=== PATIENT | female | born 1945 | race Caucasian/White ===

== ENCOUNTER → 2016-03-19 | Outpatient (CLI) | payer OTHER ==
[~2016-03-19] MED LIST: AMLO5TAB4 PO; ASPCH81 PO; BIOT1CAP8 PO; CALCTAB7 PO; DOCU-94 PO; LEVOTHYROXINE PO; LISI-725 PO; LSN/2025 PO; OMEP40CA36 PO; POTA1TAB PO; PREN1TAB29 PO; RANI1TAB77 PO; TRAM-10 PO; TRIA0.1C20; VTMB12 PO
--- NOTE | 2016-03-19 10:27 | DIAGNOSTIC IMAGING REPORT ---
RIGHT SHOULDER MIN 2 VIEWS ROUTINE CLINICAL HISTORY: Arthritis. COMPARISON: None FINDINGS: Alignment of the right shoulder is anatomic. There is no fracture or suspicious lesion. There is severe joint space narrowing with osteophytosis of the glenohumeral joint as well as moderate arthritis of the acromioclavicular joint. A few calcific densities are noted adjacent to the right glenohumeral joint that measure up to 1.4 cm. IMPRESSION: 1. No acute fracture or dislocation of the right shoulder. 2. Severe arthritis of the right glenohumeral and acromioclavicular joints. 3. Several calcific densities measuring up to 1.4 cm which project over the joint space. These could reflect joint bodies. Electronically signed by: Tree Soto M.D. 03/19/2016 10:25 AM Dictated Date/Time: 03/19/2016 10:24 AM
--- NOTE | 2016-03-19 10:28 | DIAGNOSTIC IMAGING REPORT ---
RIGHT HIP UNILATERAL 2 VIEWS CLINICAL HISTORY: Arthritis. Right hip pain. COMPARISON: None FINDINGS: Alignment of the right hip is anatomic. There is no fracture or suspicious lesion. Joint space is preserved. There is mild osteophytosis. Irregularity of the greater trochanter is due to muscular insertion. There is no evidence for avascular necrosis. There is mild arthritis of the right sacroiliac joint. IMPRESSION: 1. Mild arthritis of the right sacroiliac joint. 2. Minimal arthritis of the right hip. 3. No fracture. Electronically signed by: Tree Soto M.D. 03/19/2016 10:27 AM Dictated Date/Time: 03/19/2016 10:26 AM
--- NOTE | 2016-03-19 10:36 | DIAGNOSTIC IMAGING REPORT ---
L-SPINE MIN 4 VIEWS ROUTINE CLINICAL HISTORY: Sciatica. Arthritis. COMPARISON: None FINDINGS: There is moderate loss of height of L1. This is likely chronic. No acute fracture is identified. There is moderate to marked disc space narrowing with osteophytosis and vacuum disc phenomenon at the L2-L3, L3-L4, L4-L5 and L5-S1 levels. No suspicious lesion is identified by radiography. Sacroiliac joints are intact with mild arthritis. IMPRESSION: 1. Moderate L1 compression deformity. Although age indeterminate, this is probably old. 2. Severe multilevel degenerative disc disease and moderate multilevel facet arthrosis of the lumbar spine. Electronically signed by: Tree Soto M.D. 03/19/2016 10:35 AM Dictated Date/Time: 03/19/2016 10:33 AM
== END | disposition home or self-care (01) ==
LOC: C.RAD1850 09:48
PROVIDERS: ATTEND Internal Medicine Pulmonary Disease
DX: E03.9 Hypothyroidism, unspecified (principal); E11.9 Type 2 diabetes mellitus without complications; I10 Essential (primary) hypertension; M54.30 Sciatica, unspecified side; M51.86 Other intervertebral disc disorders, lumbar region; M19.011 Primary osteoarthritis, right shoulder; M85.811 Other specified disorders of bone density and structure, right shoulder

== ENCOUNTER → 2016-09-11 | Outpatient (CLI) | payer OTHER ==
[2016-09-11 09:38] LABS: BASO % 0.5 %; BASO ABS # 0.03 K/uL (0-0.2); COMPLETE YES; EOS % 3.6 %; HEMATOCRIT 42.6 % (37-47); IG% 0.5 %; LYMPH % 33.1 %; MEAN CELL VOLUME 88.9 fL (80-100); MEAN CORPUSCULAR HEMOGLOBIN 31.1 pg (25-34); MEAN PLATELET VOLUME 11.3 fL (7.4-10.4); MONO % 10.7 %; NEUT % 51.6 %; PLATELET COUNT 181 K/uL (130-400); RED BLOOD COUNT 4.79 M/uL (4.2-5.4); WHITE BLOOD COUNT 6.64 K/uL (4.8-10.8)
[2016-09-11 09:58] LABS: ESTIMATED AVERAGE GLUCOSE 163 mg/dl; HA1C FLAG Normal (Normal)
[2016-09-11 10:09] LABS: ALKALINE PHOSPHATASE 80 U/L (45-117); ALT/SGPT 32 U/L (12-78); AST/SGOT 20 U/L (15-37); BLOOD UREA NITROGEN 21 mg/dl (7-18); BUN/CREATININE RATIO 22.3 (10-20); CALCIUM 9.4 mg/dl (8.5-10.1); CARBON DIOXIDE 31 mmol/L (21-32); CHLORIDE 104 mmol/L (98-107); CHOLESTEROL 182 mg/dl (0-200); CHOLESTEROL/HDL RATIO 3.7; CREATININE 0.93 mg/dl (0.60-1.20); GLUCOSE 147 mg/dl (70-99); HDL CHOLESTEROL 49 mg/dl; POTASSIUM 4.1 mmol/L (3.5-5.1); SODIUM 141 mmol/L (136-145)
[2016-09-11 10:20] LABS: LDL CHOLESTEROL CALCULATED 109 mg/dl; TRIGLYCERIDES 119 mg/dl (0-150); VERY LOW DENSITY LIPOPROT CALC 24 mg/dl
== END | disposition home or self-care (01) ==
LOC: C.LAB1850 08:17
PROVIDERS: ATTEND Internal Medicine Pulmonary Disease
DX: I10 Essential (primary) hypertension (principal); E03.9 Hypothyroidism, unspecified; M19.90 Unspecified osteoarthritis, unspecified site; M54.30 Sciatica, unspecified side; E11.65 Type 2 diabetes mellitus with hyperglycemia

== ENCOUNTER → 2016-09-17 | Outpatient (CLI) | payer OTHER ==
--- NOTE | 2016-09-17 10:38 | DIAGNOSTIC IMAGING REPORT ---
LEFT SHOULDER MIN 2 VIEWS ROUTINE HISTORY: 71 years-old Female I10 [id number] [id number] Diabetes [id number] COMPARISON: Chest radiographs 05/03/2014 TECHNIQUE: 3 views of the left shoulder FINDINGS: There is prominent spurring about the greater tuberosity and inferior aspect of the humeral head neck junction. Bones are mildly demineralized. Moderate degenerative changes are seen within the AC joint. There is no definite intra-articular loose body identified. No acute fracture or dislocation is identified. Imaged lung greer appear to be clear. Soft tissues are unremarkable. IMPRESSION: 1. No acute fracture or dislocation. 2. Moderate acromioclavicular and mild to moderate glenohumeral degenerative changes as above. The above report was generated using voice recognition software. It may contain grammatical, syntax or spelling errors. Electronically signed by: Manuelito Emery M.D. 09/17/2016 10:36 AM Dictated Date/Time: 09/17/2016 10:34 AM
== END | disposition home or self-care (01) ==
LOC: C.RAD1850 10:14
PROVIDERS: ATTEND Internal Medicine Pulmonary Disease
DX: E03.9 Hypothyroidism, unspecified (principal); E11.9 Type 2 diabetes mellitus without complications; I10 Essential (primary) hypertension; M19.90 Unspecified osteoarthritis, unspecified site

== ENCOUNTER → 2016-12-18 | Outpatient (CLI) | payer OTHER ==
--- NOTE | 2016-12-18 15:16 | MAMMOGRAPHY REPORT ---
BILATERAL DIGITAL SCREENING MAMMOGRAM WITH CAD: 12/18/2016 CLINICAL HISTORY: Routine screening examination. TECHNIQUE: Bilateral CC and MLO views were obtained. Current study was also evaluated with a Compute r Aided Detection (CAD) system. COMPARISON: Comparison is made to exams dated: 11/07/2015 mammogram, 11/02/2014 mammogram, 10/27/2013 denise mogram, 10/20/2012 mammogram, 10/15/2011 mammogram, and 10/09/2010 mammogram - [facility]. BREAST COMPOSITION: The tissue of both breasts is almost entirely fatty. FINDINGS: There is a stable intramammary lymph node in the right upper outer quadrant. Benign coarse and rodlike calcifications bilaterally. No new suspicious mass, architectural distortion or cluster of microcalcifications is seen. IMPRESSION: ACR BI-RADS CATEGORY 2: BENIGN There is no mammographic evidence of malignancy. A 1 year screening mammogram is recommended. The pa tient will receive written notification of the results. Approximately 10% of breast cancers are not detected with mammography. A negative mammographic report should not delay biopsy if a clinically suggestive mass is present. Yadira Lawton M.D. ay/:12/18/2016 13:37:26 Petroleum Engineering Professor: Cinthia STROUD(Mayra)(Felicia), [facility] letter sent: Normal 1/2 BI-RADS Code: ACR BI-RADS Category 2: Benign
== END | disposition home or self-care (01) ==
LOC: C.MAMM 12:45
PROVIDERS: ATTEND Internal Medicine Pulmonary Disease
DX: Z12.31 Encounter for screening mammogram for malignant neoplasm of breast (principal)

== ENCOUNTER → 2017-03-13 | Outpatient (CLI) | payer OTHER ==
[2017-03-13 09:49] LABS: HEMOGLOBIN A1C 7.5 % (4.5-5.6)
== END | disposition home or self-care (01) ==
LOC: C.LAB1850 08:49
PROVIDERS: ATTEND Internal Medicine Pulmonary Disease
DX: I10 Essential (primary) hypertension (principal); E03.9 Hypothyroidism, unspecified; M19.90 Unspecified osteoarthritis, unspecified site; E11.9 Type 2 diabetes mellitus without complications

== ENCOUNTER → 2017-10-01 | Outpatient (CLI) | payer OTHER ==
[~2017-10-01] MED LIST changes: +LISI20TA10 PO; -LSN/2025 PO
--- NOTE | 2017-10-01 14:27 | DIAGNOSTIC IMAGING REPORT ---
MRI OF THE LUMBAR SPINE WITHOUT IV CONTRAST CLINICAL HISTORY: Lumbar spinal stenosis. COMPARISON STUDY: Radiographs of lumbar spine dated 09/24/2017. TECHNIQUE: MRI of the lumbar spine is performed utilizing various T1 and T2-weighted sequences in the axial and sagittal planes. IV contrast was not administered for this examination. FINDINGS: Lumbar spine: There is a mild to moderate chronic superior endplate compression deformity of L1. Vertebral body height is otherwise maintained throughout the lumbar spine. Alignment is preserved. There is straightening of the lumbar lordosis. Anterior osteophytes are seen throughout. The transverse and spinous processes are intact as visualized. There is no evidence of spondylolysis. No destructive bony lesion is seen. Chronic degenerative endplate change is seen at all lumbar levels. Mild degenerative endplate edema is noted at L1-L2, L2-L3, L4-L5, and L5-S1. Intervertebral discs: Degenerative disc desiccation with moderate to severe loss of height is seen at all lumbar levels. Spinal cord: The visualized spinal cord is normal in morphology and signal intensity. The conus medullaris terminates at the L1-L2 interspace. The nerve roots of the cauda equina are normal in morphology. T11-T12: There is a small posterior disc bulge at T11-T12. This is only seen on the sagittal series. No high-grade central canal stenosis is identified. T12-L1: Facet arthropathy is of no consequence. The central canal and neural foramina are patent. L1-L2: There is a large posterior central disc protrusion. There is no significant acquired compromise of the central canal at this level. The neural foramina are patent. There is bilateral subarticular stenosis with possible impingement on the exiting L1 nerve roots. L2-L3: There is broad-based posterior disc bulge. There is no high-grade central canal stenosis. The minimum AP canal diameter measures up to 10 mm. The neural foramina are patent. There is bilateral subarticular stenosis. This may impinge on the exiting bilateral L3 nerve roots. L3-L4: There is broad-based posterior disc bulge with annular fissure. In conjunction with hypertrophy of the ligamentum flavum there is mild to moderate central canal stenosis at the level. The minimum AP canal diameter measures 7.5 mm. There is bilateral subarticular stenosis, impingement on the exiting right L3 and the transiting bilateral L4 nerve roots. L4-L5: There is broad-based posterior disc bulge. In conjunction with hypertrophy of the ligamentum flavum there is moderate central canal stenosis with a minimum AP diameter of 5 mm. There is severe bilateral subarticular stenosis, with impingement on the exiting bilateral L4 and the transiting bilateral L5 nerve roots. Facet arthropathy causes minimal bilateral neural foraminal stenosis. L5-S1: There is a broad-based posterior disc bulge eccentric to the left. This causes left-sided subarticular stenosis, and impinges on the exiting left L5 as well as the transiting bilateral S1 nerve roots. Facet arthropathy causes at least moderate bilateral neural foraminal stenosis. Sacrum: The visualized sacrum is normal in morphology and signal intensity. 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 Soft tissues: There is mild fatty atrophy of the paraspinous musculature. Right renal cysts are incidentally noted. The visualized retroperitoneal structures are otherwise grossly unremarkable but incompletely evaluated. IMPRESSION: 1. Moderate multilevel lumbosacral spondylosis as above with multilevel acquired compromise of the central canal. This is greatest at L4-L5. See discussion for detailed level by level analysis. 2. Advanced degenerative disc disease with multilevel degenerative endplate change and endplate edema. See discussion. 3. There is a chronic superior endplate compression deformity of L1. 4. Additional findings as above. Dictated: 10/01/2017 1:37 PM Transcribed: 10/01/2017 2:27 PM [facility] Electronically signed by: Charles Workman M.D. 10/01/2017 2:49 PM Dictated Date/Time: 10/01/2017 1:37 PM
== END | disposition home or self-care (01) ==
LOC: C.MRI 12:30
PROVIDERS: ATTEND Orthopaedic Surgery Orthopaedic Surgery of the Spine
DX: M48.061 Spinal stenosis, lumbar region without neurogenic claudication (principal); M51.36 Other intervertebral disc degeneration, lumbar region; M48.56XA Collapsed vertebra, not elsewhere classified, lumbar region, initial encounter for fracture

== ENCOUNTER 2022-07-06 08:21 | Inpatient (IN) ==
[2022-07-06] MEDS ORDERED: PANTOPRAZOLE BOLUS/DRIP 1 EACH IV STA (09:00)
[2022-07-06] MEDS ORDERED: SODIUM CHLORIDE 0.9% 500 ML IV SCH (09:00)
[2022-07-06] MEDS ORDERED: PANTOprazole 80 MG in DEXTROSE 5% 100 ML IV ONE (09:00)
[2022-07-06] MEDS ORDERED: SODIUM CHLORIDE 0.9% 250 ML IV PRN (09:08)
[2022-07-06 09:27] LABS: Albumin Globulin Ratio 1.3 (0.9-2); Albumin Level 4.5 gm/dl (3.4-5.0); BUN Creatinine Ratio 27.3 (10-20); Bilirubin,Total 0.7 mg/dl (0.2-1.0); Calcium 9.9 mg/dl (8.6-10.3); Creatinine Clr Calc Pharmacy 37.4 ml/min; Est GFR (Non-African American) 39.7 ml/min; Globulin 3.4 gm/dl (2.5-4.0); Potassium 4.3 mmol/L (3.5-5.1); Total Protein 7.9 gm/dl (6.0-8.3)
--- NOTE | 2022-07-06 09:28 | CT Scan Report ---
CT OF THE HEAD WITHOUT CONTRAST CLINICAL HISTORY: Syncope with head injury. COMPARISON STUDY: No previous studies for comparison. CT DOSE: 625.80 mGy.cm TECHNIQUE: Helical axial images of the head were obtained without IV contrast. Automated exposure con trol was utilized for the study. A dose lowering technique was utilized adhering to the principles o f ALARA. FINDINGS: No acute intracranial hemorrhage, midline shift or mass effect is present. White matter hyp odensities are suggestive of small vessel disease. The ventricular system is unremarkable. The basal cisterns are patent. No extra-axial collections are present. There are no findings to suggest acute d ural sinus thrombosis or acute territorial infarct. A left frontal scalp contusion is present. There is no acute calvarial fracture. IMPRESSION: 1. No acute intracranial findings. 2. Left frontal scalp contusion. No calvarial fracture. ACT 112: Negative or not required by law. Electronically signed by: Tree Soto M.D. 07/06/2022 9:27 AM
--- NOTE | 2022-07-06 09:42 | Emergency Department Note ---
Impression & Plan Bilateral pulmonary embolism, Syncope, CHI (closed head injury), Thrombocytopenia, Heme positive stool ED Provider Note CHIEF COMPLAINT: Syncope, diarrhea HISTORY OF PRESENT ILLNESS: This 77-year-old female patient with past medical history of type 2 diabetes, peripheral neuropathy, hypothyroidism, hypertension, GERD, PAD, chronic kidney disease presents to the emergency department after a near syncopal episode today and an episode of dark diarrhea. Patient states she was incontinent of the diarrhea which is unusual for her. Patient's reiterates that about a week ago she had a syncopal episode in the bathroom. The patient stood up felt dizzy and tried to walk to her bed. She missed the bed and thinks she hit her head/face off of the jewelry stand. found the patient with positive LOC "face down" after he heard the thud. Patient states this has not recurred since that episode. REVIEW OF SYSTEMS: A review of systems was performed with positives and pertinen t negatives listed in the history of present illness. 10 systems were reviewed and are otherwise negative. ALLERGIES: see below MEDICATIONS: see below PMH: see below SOCIAL HISTORY: see below DDx: Benign positional vertigo, dehydration, hypovolemia, anemia, tumor, infection, hypoglycemia, electrolyte abnormalities, cardiac sources, intracerebral event, toxicologic, neurologic, as well as other pathologies. PHYSICAL EXAM: Vital signs reviewed. Noted to be hypertensive. General: Well-appearing 77 yo female, in no significant distress. HEENT: No scleral icterus, PERRLA, neck supple. Hematoma noted to the forehead and bridge of the nose/right maxillary region Cardiovascular: Regular rate and rhythm, no extra sounds. Pulmonary: Clear to auscultation bilaterally, normal work of breathing. Abdomen: Soft, nontender, nondistended, positive bowel sounds. Musculoskeletal: Atraumatic, no peripheral edema. Rectal: Faint guaiac + light brown stool. Normal rectal mucosa. Neurologic: Patient awake alert and oriented x 3, speech is clear. Cranial nerves II through XII are grossly intact. Skin: Warm, dry, no rash EMERGENCY DEPARTMENT COURSE/MDM: - IV access obtained and lab work was drawn. Previous med records reviewed. - placed on scoreboard operator. EKG reveals ST with PVC, new RBBB. - CXR clear. Head CT negative for ICH, forehead hematoma noted. - HS trop elevated and pt tachycardic w syncope, CT chest ordered. -CTA chest + submassive bilateral PE. Hgb 14 with plt count 41. HS trop 212, likely demand mediated. - D/w Dr. Pinzon of ICU, rec c/w critcal care and interventional rads at tertiary center. - Dr. Larson of critical care feels pt stable and does not meet criteria for catheter guided TPA or thrombectomy at this time. - Will keep pt at [facility] as no procedure is indicated currently. Dr. Pinzon informed and asked for PCU admit. - Dr. Ibarra of hospital medicine aware and will evaluate for admission. MONITORING: An order for cardiac monitoring was placed and the patient is noted to be in a sinus tachy at 105 beats per minute. RADIOLOGY: CT chest to my review reveals large bilateral PE, otherwise defer to rads. Head CT to my review is negative for acute intracranial hemorrhage. Defer to rads. CXR to my review is negative for acute process. EKG: To my interpretation reveals a sinus tachycardia with occasional PVC at 110 bpm. Low voltage QRS, right bundle branch block, previous inferior infarct. T wave abnormality in the lateral leads. When compared to previous dated February 14, 2022, PVCs are now present, PACs have resolved. RBBB is now present. DISPOSITION: Admit I have personally spent 60 minutes of critical care time in the direct management of this patient. This was a life/limb threatening event. This 60 minutes is in excess of all separately billable procedures. Past Med/Surg History Medical History Arthritis of both feet Asthma Controlled Degenerative disc disease Diabetes mellitus, type 2 A1C 7.1% 10/26/21 Eczema GERD (gastroesophageal reflux disease) Hiatal hernia History of COVID-19 Mid 11/2021 (home test), cough and nasal congestion > resolved Hypertension Hypothyroidism Osteoarthritis Peripheral vascular disease Stage 3a chronic kidney disease (CKD) Urethral stenosis "Small urethra" per pt, requiring "small Kapadia catheter" Viral eye infection Right eye being treated by Dr. Washington, taking valcyclovir and prednisone eye drops (per pt, Dr. Washington told her no issue with upcoming orthopedic surgery from their perspective) Surgical History Acquired toe deformity amputation right second toe Hammertoes of both feet corrected History of blepharoplasty upper lid w/ excessive skin History of bunionectomy RT History of cataract surgery RT History of colonoscopy History of cornea transplant RT SIDE History of dilation and curettage History of endometrial biopsy without cervical dilation History of esophagogastroduodenoscopy (EGD) History of tooth extraction History of total right knee replacement History of varicose vein ligation LEFT Hx of foot surgery Right 2nd toe amputation (11/10/20): MAC at [facility] Status post reverse total replacement of right shoulder Right reverse TSA (06/10/20): LMA#4 + PNB at [facility]. No issues noted per post-op anesthesia progress note. Family History Family/Other Diabetes Breast cancer Hypertension Coronary arteriosclerosis Grandmother Colon cancer Father Family history of diabetes mellitus Other No family history of adverse response to anesthesia Social History Smoking Status: Former smoker Second Hand Exposure: No; Do You Dip or Chew Tobacco: No; Hx Alcohol Use: No Hx Substance Use: No Preferred Language: [place] Communication Ability: Effective Visual Impairment: Limited Hearing Ability: Normal Credit Reporter Required: No Beliefs That Will Affect Care: None marital status: Current Living Situation: Spouse current occupational status: employed 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 How many Children do You have Comment: able to assist with care as needed Feels Safe at Home: Yes Safety Concerns: Feels Safe At This Time during the past year weight has: remained stable Assistive Devices: Denture - Upper and Glasses Allergies Allergies Allergy/AdvReac Type Severity Reaction Status Date / Time oxycodone [From OxyContin] Allergy Intermediate Hallucinati Verified 03/16/22 07:17 ons adhesive tape AdvReac Mild Skin Verified 03/16/22 07:17 reaction Home Meds Home Medications Medication Instructions Recorded Confirmed aspirin 81 mg tablet 81 mg PO QAM 12/09/18 07/06/22 lactobacillus combination no.4 3 3,000 mmu cells PO QAM 05/12/20 07/06/22 billion cell capsule (Probiotic) potassium gluconate 595 mg (99 mg) 595 mg PO QAM 05/12/20 07/06/22 tablet magnesium 500 mg tablet 250 mg PO QAM 04/05/21 07/06/22 Beet Root 1 tab PO QAM 02/12/22 07/06/22 biotin 10,000 mcg chewable tablet 10,000 mcg PO QAM 02/12/22 07/06/22 (Hair, Skin and Nails (biotin)) naproxen sodium 220 mg capsule 220 mg PO Q8H PRN Pain 02/12/22 07/06/22 (Aleve) prednisolone acetate 1 % eye 1 drp OPR QAM 02/12/22 07/06/22 drops,suspension valacyclovir 1 gram tablet 1,000 mg PO QAM 02/12/22 07/06/22 amlodipine 5 mg tablet 5 mg PO DAILY 07/06/22 07/06/22 glipizide 2.5 mg tablet, extended 2.5 mg PO DAILY 07/06/22 07/06/22 release 24 hr levothyroxine 100 mcg tablet 100 mcg PO DAILY 07/06/22 07/06/22 losartan 100 1 tab PO DAILY 07/06/22 07/06/22 mg-hydrochlorothiazide 25 mg tablet omeprazole 40 mg capsule,delayed 40 mg PO DAILY 07/06/22 07/06/22 release Previous Rx's Medication Instructions Recorded albuterol sulfate 90 mcg/actuation 2 puff inhalation Q6H PRN 05/17/21 aerosol inhaler (Proventil HFA) shortness of breath or wheezing #8.5 grams nystatin 100,000 unit/gram topical 1 applic topical BID #60 grams 09/11/21 powder metformin 500 mg tablet,extended 1,000 mg PO BID #360 tabs 03/14/22 release 24 hr Results & Data (ED) Vital Signs Vital Signs - 24 hr 07/06/22 08:27 07/06/22 08:40 07/06/22 08:48 Temperature 36.7 C Temperature Source Temporal Artery Scan Pulse Rate - Lying 101 H Pulse Rate - Sitting 106 H Pulse Rate - Standing 109 H Pulse Rate 112 H 105 H Pulse Rate [Apical] Pulse Rate from SpO2 Sensor Pulse Rhythm [Apical] Respiratory Rate 18 Respiratory Effort / Characteristics Respiratory Depth Normal Respiratory Pattern Blood Pressure - Lying 141/88 H Blood Pressure - Sitting 119/82 Blood Pressure- Standing 123/93 Blood Pressure 139/90 Blood Pressure [Left Arm] Blood Pressure Mean 106 Blood Pressure Mean [Left Arm] Blood Pressure Position [Left Arm] Pulse Oximetry 92 Oxygen Delivery Method Room Air Sepsis Recent Fever Within 48 Hours No Sepsis New/Unexplained Change in Mental Status No Sepsis Action Taken by Nursing No Action Required 07/06/22 09:04 07/06/22 09:00 07/06/22 09:30 Temperature Temperature Source Pulse Rate - Lying Pulse Rate - Sitting Pulse Rate - Standing Pulse Rate 103 H 105 H Pulse Rate [Apical] 98 H Pulse Rate from SpO2 Sensor Pulse Rhythm [Apical] Regular Respiratory Rate 16 24 23 Respiratory Effort / Characteristics Non-Labored Spontaneous Respiratory Depth Normal Respiratory Pattern Regular Blood Pressure - Lying Blood Pressure - Sitting Blood Pressure- Standing Blood Pressure 116/91 124/87 Blood Pressure [Left Arm] 116/91 Blood Pressure Mean 99 99 Blood Pressure Mean [Left Arm] 99 Blood Pressure Position [Left Arm] Semi-fowlers Pulse Oximetry 96 95 93 Oxygen Delivery Method Room Air Sepsis Recent Fever Within 48 Hours Sepsis New/Unexplained Change in Mental Status Sepsis Action Taken by Nursing 07/06/22 10:00 07/06/22 10:30 07/06/22 10:30 Temperature Temperature Source Pulse Rate - Lying Pulse Rate - Sitting Pulse Rate - Standing Pulse Rate 92 H 88 Pulse Rate [Apical] Pulse Rate from SpO2 Sensor 92 H Pulse Rhythm [Apical] Respiratory Rate 22 20 Respiratory Effort / Characteristics Respiratory Depth Respiratory Pattern Blood Pressure - Lying Blood Pressure - Sitting Blood Pressure- Standing Blood Pressure 133/94 138/100 Blood Pressure [Left Arm] Blood Pressure Mean 107 112 Blood Pressure Mean [Left Arm] Blood Pressure Position [Left Arm] Pulse Oximetry 93 94 Oxygen Delivery Method Sepsis Recent Fever Within 48 Hours Sepsis New/Unexplained Change in Mental Status Sepsis Action Taken by Nursing 07/06/22 11:00 07/06/22 11:00 07/06/22 11:30 Temperature Temperature Source Pulse Rate - Lying Pulse Rate - Sitting Pulse Rate - Standing Pulse Rate 96 H 93 H Pulse Rate [Apical] Pulse Rate from SpO2 Sensor 92 H Pulse Rhythm [Apical] Respiratory Rate 23 21 Respiratory Effort / Characteristics Respiratory Depth Respiratory Pattern Blood Pressure - Lying Blood Pressure - Sitting Blood Pressure- Standing Blood Pressure 142/106 H Blood Pressure [Left Arm] Blood Pressure Mean 118 Blood Pressure Mean [Left Arm] Blood Pressure Position [Left Arm] Pulse Oximetry 94 Oxygen Delivery Method Room Air Sepsis Recent Fever Within 48 Hours Sepsis New/Unexplained Change in Mental Status Sepsis Action Taken by Nursing 07/06/22 11:45 07/06/22 11:51 07/06/22 11:51 Temperature Temperature Source Pulse Rate - Lying Pulse Rate - Sitting Pulse Rate - Standing Pulse Rate 100 H 92 H Pulse Rate [Apical] Pulse Rate from SpO2 Sensor Pulse Rhythm [Apical] Respiratory Rate 25 H 21 Respiratory Effort / Characteristics Respiratory Depth Respiratory Pattern Blood Pressure - Lying Blood Pressure - Sitting Blood Pressure- Standing Blood Pressure 175/111 H Blood Pressure [Left Arm] Blood Pressure Mean 132 Blood Pressure Mean [Left Arm] Blood Pressure Position [Left Arm] Pulse Oximetry 94 Oxygen Delivery Method Room Air Sepsis Recent Fever Within 48 Hours Sepsis New/Unexplained Change in Mental Status Sepsis Action Taken by Nursing 07/06/22 12:00 07/06/22 12:00 07/06/22 12:15 Temperature Temperature Source Pulse Rate - Lying Pulse Rate - Sitting Pulse Rate - Standing Pulse Rate 91 H Pulse Rate [Apical] Pulse Rate from SpO2 Sensor 89 Pulse Rhythm [Apical] Respiratory Rate 15 Respiratory Effort / Characteristics Respiratory Depth Respiratory Pattern Blood Pressure - Lying Blood Pressure - Sitting Blood Pressure- Standing Blood Pressure 150/109 H 156/105 H Blood Pressure [Left Arm] Blood Pressure Mean 122 122 Blood Pressure Mean [Left Arm] Blood Pressure Position [Left Arm] Pulse Oximetry 94 Oxygen Delivery Method Room Air Sepsis Recent Fever Within 48 Hours Sepsis New/Unexplained Change in Mental Status Sepsis Action Taken by Nursing 07/06/22 12:15 07/06/22 12:30 07/06/22 12:30 Temperature Temperature Source Pulse Rate - Lying Pulse Rate - Sitting Pulse Rate - Standing Pulse Rate 94 H 99 H Pulse Rate [Apical] Pulse Rate from SpO2 Sensor 95 H 99 H Pulse Rhythm [Apical] Respiratory Rate 22 20 Respiratory Effort / Characteristics Respiratory Depth Respiratory Pattern Blood Pressure - Lying Blood Pressure - Sitting Blood Pressure- Standing Blood Pressure 193/133 H Blood Pressure [Left Arm] Blood Pressure Mean 153 Blood Pressure Mean [Left Arm] Blood Pressure Position [Left Arm] Pulse Oximetry 94 94 Oxygen Delivery Method Room Air Room Air Sepsis Recent Fever Within 48 Hours Sepsis New/Unexplained Change in Mental Status Sepsis Action Taken by Nursing 07/06/22 12:45 07/06/22 12:45 Temperature Temperature Source Pulse Rate - Lying Pulse Rate - Sitting Pulse Rate - Standing Pulse Rate 99 H Pulse Rate [Apical] Pulse Rate from SpO2 Sensor 100 H Pulse Rhythm [Apical] Respiratory Rate 21 Respiratory Effort / Characteristics Respiratory Depth Respiratory Pattern Blood Pressure - Lying Blood Pressure - Sitting Blood Pressure- Standing Blood Pressure 152/113 H Blood Pressure [Left Arm] Blood Pressure Mean 126 Blood Pressure Mean [Left Arm] Blood Pressure Position [Left Arm] Pulse Oximetry 94 Oxygen Delivery Method Room Air Sepsis Recent Fever Within 48 Hours Sepsis New/Unexplained Change in Mental Status Sepsis Action Taken by [facility]way Medications Current Medication List: was personally reviewed by me Laboratory Data Attestation: I reviewed the patient's lab results. 07/06/22 08:40 07/06/22 08:40 Lab Results 07/06/22 07/06/22 07/06/22 Range/Units 08:40 08:40 08:40 WBC 9.66 (4.8-10.8) K/ul RBC 4.54 (4.20-5.40) M/uL Hgb 14.7 (12.0-16.0) g/dl Hct 43.3 (37.0-47.0) % MCV 95.4 (80.0-100.0) fL MCH 32.4 (25.0-34.0) pg MCHC 33.9 (32.0-36.0) g/dL RDW Std Deviation 47.8 H (36.4-46.3) fL RDW Coeff of Rico 13.7 (11.5-14.5) % Plt Count 41 L (130-400) K/uL MPV 13.0 H (9.4-12.4) fL Immature Gran % (Auto) 0.4 % Neut % (Auto) 66.5 % Lymph % (Auto) 23.6 % Dade % (Auto) 7.7 % Eos % (Auto) 1.3 % Baso % (Auto) 0.5 % Neut # (Auto) 6.42 (1.40-6.50) K/uL Lymph # (Auto) 2.28 (1.2-3.4) K/uL Dade # (Auto) 0.74 H (0.11-0.59) K/uL Eos # (Auto) 0.13 (0-0.50) K/uL Baso # (Auto) 0.05 (0-0.2) K/uL Immature Gran # (Auto) 0.04 (0.01-0.20) K/uL PT 12.5 H (9.0-12.0) Seconds INR 1.2 H (0.9-1.1) APTT 28.1 (21.0-31.0) Seconds PTT Ratio 1.0 Sodium 137 (136-145) mmol/L Potassium 4.3 (3.5-5.1) mmol/L Chloride 103 (98-107) mmol/L Carbon Dioxide 23 (21-32) mmol/L Anion Gap 11 (3-11) BUN 35 H (6-23) mg/dl Creatinine 1.28 H (0.6-1.2) mg/dl Est Cr Clr Drug Dosing 37.4 ml/min Est GFR ( Amer) 46.0 ml/min Est GFR (Non-Af Amer) 39.7 ml/min BUN/Creatinine Ratio 27.3 H (10-20) Glucose 161 H (70-99(Fasting)) mg/dl Calcium 9.9 (8.6-10.3) mg/dl Total Bilirubin 0.7 (0.2-1.0) mg/dl AST 31 (13-39) U/L ALT 25 (7-52) U/L Alkaline Phosphatase 72 (34-104) U/L Troponin I High Sens 212.4 H* (0-14) pg/ml Total Protein 7.9 (6.0-8.3) gm/dl Albumin 4.5 (3.4-5.0) gm/dl Globulin 3.4 (2.5-4.0) gm/dl Albumin/Globulin Ratio 1.3 (0.9-2) SARS-CoV-2, RNA, NAAT (NEGATIVE) Blood Type Antibody Screen Crossmatch 07/06/22 07/06/22 Range/Units 09:22 11:11 WBC (4.8-10.8) K/ul RBC (4.20-5.40) M/uL Hgb (12.0-16.0) g/dl Hct (37.0-47.0) % MCV (80.0-100.0) fL MCH (25.0-34.0) pg MCHC (32.0-36.0) g/dL RDW Std Deviation (36.4-46.3) fL RDW Coeff of Rico (11.5-14.5) % Plt Count (130-400) K/uL MPV (9.4-12.4) fL Immature Gran % (Auto) % Neut % (Auto) % Lymph % (Auto) % Dade % (Auto) % Eos % (Auto) % Baso % (Auto) % Neut # (Auto) (1.40-6.50) K/uL Lymph # (Auto) (1.2-3.4) K/uL Dade # (Auto) (0.11-0.59) K/uL Eos # (Auto) (0-0.50) K/uL Baso # (Auto) (0-0.2) K/uL Immature Gran # (Auto) (0.01-0.20) K/uL PT (9.0-12.0) Seconds INR (0.9-1.1) APTT (21.0-31.0) Seconds PTT Ratio Sodium (136-145) mmol/L Potassium (3.5-5.1) mmol/L Chloride (98-107) mmol/L Carbon Dioxide (21-32) mmol/L Anion Gap (3-11) BUN (6-23) mg/dl Creatinine (0.6-1.2) mg/dl Est Cr Clr Drug Dosing ml/min Est GFR ( Amer) ml/min Est GFR (Non-Af Amer) ml/min BUN/Creatinine Ratio (10-20) Glucose (70-99(Fasting)) mg/dl Calcium (8.6-10.3) mg/dl Total Bilirubin (0.2-1.0) mg/dl AST (13-39) U/L ALT (7-52) U/L Alkaline Phosphatase (34-104) U/L Troponin I High Sens (0-14) pg/ml Total Protein (6.0-8.3) gm/dl Albumin (3.4-5.0) gm/dl Globulin (2.5-4.0) gm/dl Albumin/Globulin Ratio (0.9-2) SARS-CoV-2, RNA, NAAT NEGATIVE (NEGATIVE) Blood Type B Positive Antibody Screen NEGATIVE Crossmatch See Detail Administered Medications Heparin Sodium/Dextrose (Heparin Sodium/Dextrose) 25,000 units in 500 mls @ 21 mls/hr IV .[id number] PENDING SALE TO [facility]; Protocol Stop: 08/05/22 12:29 Last Titration: 07/06/22 20:31 Dose: 1,050 units/hr, 21 mls/hr Documented By: KUN Co-signed By: PAYAL Titration: 07/06/22 19:23 Dose: 0 units/hr, 0 mls/hr Documented By: KUN Co-signed By: PAYAL Admin: 07/06/22 12:17 Dose: 1,200 units/hr, 24 mls/hr Documented By: BENJY Co-signed By: JUANA Parenteral Electrolytes (Plasma-Lyte A Ph 7.4) 1,000 mls @ 100 mls/hr IV .Q10H BERNICE Stop: 08/05/22 13:14 Last Admin: 07/06/22 13:50 Dose: 100 mls/hr Documented By: BENJY Pantoprazole Sodium 40 mg/ (Syringe) 10 mls @ 5 mls/min IV BID BERNICE Stop: 08/05/22 20:59 Last Admin: 07/06/22 21:17 Dose: 5 mls/min Documented By: KUN Insulin Aspart (Insulin Aspart Per Unit Charge) 0 units SC ACHS BERNICE Stop: 08/05/22 16:29 Last Admin: 07/06/22 21:02 Dose: Not Given Documented By: Admin: 07/06/22 16:59 Dose: 2 units Documented By: Co-signed By: MARTHA Insulin Glargine (Lantus Per Unit Charge) 4 units SQ BID BERNICE Stop: 08/05/22 20:59 Last Admin: 07/06/22 21:17 Dose: Not Given Documented By: KUN Discontinued Medications Heparin Sodium (Porcine) (Heparin Sod (Porcine) 1000 Unit/Ml) 4,000 units IV NOW ONE Stop: 07/06/22 11:16 Last Admin: 07/06/22 11:24 Dose: 4,000 units Documented By: BENJY Co-signed By: JUANA Sodium Chloride (Nss) 500 mls @ 999 mls/hr IV .Q31M BERNICE Stop: 07/06/22 09:30 Last Infusion: 07/06/22 10:04 Dose: 0 mls/hr Documented By: KUN(2) Admin: 07/06/22 09:33 Dose: 999 mls/hr Documented By: KUN(2) Pantoprazole Sodium (Protonix Bolus/Drip) 0 mls @ 1 mls/hr IV ONE STA Stop: 07/06/22 09:01 Last Admin: 07/06/22 10:05 Dose: Not Given Documented By: NAB(2) Pantoprazole Sodium 80 mg/ (Dextrose) 120 mls @ 400 mls/hr IV NOW ONE Stop: 07/06/22 09:17 Last Infusion: 07/06/22 09:53 Dose: 0 mls/hr Documented By: NAB(2) Admin: 07/06/22 09:34 Dose: 400 mls/hr Documented By: NAB(2) Pantoprazole Sodium 40 mg/ (Dextrose) 100 mls @ 20 mls/hr IV Q5H BERNICE Stop: 08/05/22 09:29 Last Admin: 07/06/22 21:12 Dose: Not Given Documented By: Infusion: 07/06/22 20:50 Dose: 0 mg/hr, 0 mls/hr Documented By: Admin: 07/06/22 15:44 Dose: 8 mg/hr, 20 mls/hr Documented By: Infusion: 07/06/22 14:53 Dose: 8 mg/hr, 20 mls/hr Documented By: Admin: 07/06/22 09:53 Dose: 8 mg/hr, 20 mls/hr Documented By: KUN(2) Heparin Sodium/Dextrose (Heparin Sodium/Dextrose) 25,000 units in 500 mls @ 16 mls/hr IV .Q24H BERNICE; Protocol Stop: 08/05/22 10:44 Last Titration: 07/06/22 12:17 Dose: 0 units/hr, 0 mls/hr Documented By: BENJY Co-signed By: JUANA Admin: 07/06/22 11:24 Dose: 800 units/hr, 16 mls/hr Documented By: BENJY Co-signed By: JUANA Ioversol (Optiray 320 500ml) 109 ml IV ONCE ONE Stop: 07/06/22 10:48 Last Admin: 07/06/22 10:47 Dose: 109 ml Documented By: EDK Imaging Data Radiologist's Impression: Chest X-Ray 07/06/22 09:01 XR chest 1V portable CLINICAL HISTORY: syncope CHI COMPARISON STUDY: Chest radiograph February 14, 2022. FINDINGS: Bilateral shoulder arthroplasties are present. Lung volumes are normal. Lungs are clear. There is no pneumothorax or pleural effusion. Cardiac size is normal. Mediastinal contours are normal. There is no evidence for pulmonary edema. IMPRESSION: No acute cardiopulmonary findings. No change in appearance of the chest. ACT 112: Negative or not required by law. Electronically signed by: Tree Soto M.D. 07/06/2022 9:50 AM Chest CTA 07/06/22 10:28 CT ANGIOGRAPHY OF THE CHEST, PULMONARY EMBOLUS PROTOCOL CLINICAL HISTORY: PE COMPARISON STUDY: Chest radiograph performed earlier today. TECHNIQUE: Following IV administration of 109 mL of Optiray, helical axial images of the chest were obtained utilizing the pulmonary embolus protocol. Maximal intensity projections and sagittal and coronal reformats were viewed on an independent 3D workstation. IV contrast was administered without complication. Automated exposure control was utilized for the study. A dose lowering technique was utilized adhering to the principles of ALARA. CT DOSE: 564.08 mGy.cm FINDINGS: There are extensive bilateral pulmonary emboli. This includes extensive emboli within the right pulmonary artery which are nearly occlusive. There is minimal opacification of the right-sided pulmonary arteries. There are emboli within the distal left pulmonary artery extending into the lobar and segmental branches of the left lung. No pulmonary infarct is noted. There is mild dilatation of the right heart chambers. Mild cardiomegaly is present. There is no pericardial effusion. No thoracic aortic dissection. No thoracic lymphadenopathy. Ground glass and linear opacities favor atelectasis. There is no pneumothorax or pleural effusion. No acute fractures within the bony structures are noted. A 2.2 cm water attenuation right renal lesion favors a cyst. Calcification granulomas within the spleen are present. Bilateral shoulder arthroplasties are incidentally noted. IMPRESSION: 1. Extensive bilateral pulmonary emboli, including nearly occlusive emboli within the right pulmonary artery. Mild dilatation of the right heart chambers may reflect right heart strain. 2. No pulmonary infarct. ACT 112: Negative or not required by law. Electronically signed by: Tree Soto M.D. 07/06/2022 11:11 AM Venous Doppler Study 07/06/22 11:57 BILATERAL LOWER EXTREMITY VENOUS DOPPLER HISTORY: Screening for DVT in a patient with pulmonary emboli DVT, large PE on CT COMPARISON STUDY: None. FINDINGS: There is normal compressibility, flow, and augmentation within the bilateral lower extremity deep venous systems. Mild linear stranding noted within the common femoral/greater saphenous junction. 4.3 cm Mojica's cyst. IMPRESSION: 1. No acute DVT. 2. Mild linear stranding within the common femoral and greater saphenous junction suggestive of a chronic nonocclusive thrombus. ACT 112: Negative or not required by law. Electronically signed by: Julio César Emery M.D. 07/06/2022 1:53 PM Discharge Plan Visit Data Chief Complaint: Dizziness Stated Complaint: DIZZINESS, SYNCOPE, HIT HEAD ED Provider: Flower Gruber Discharge Problem: Bilateral pulmonary embolism, Syncope, CHI (closed head injury), Thrombocytopenia, Heme positive stool Patient Disposition: Admitted As Inpatient Discharge Instructions Interventions: ED Discharge Assessment Last Done: 07/06/22 14:05
[2022-07-06 09:48] LABS: Basophils # (auto) 0.05 K/uL (0-0.2); Basophils % (auto) 0.5 %; Eosinophils # (auto) 0.13 K/uL (0-0.50); Eosinophils % (auto) 1.3 %; Hematocrit (blood only) 43.3 % (37.0-47.0); Hemoglobin 14.7 g/dl (12.0-16.0); Immature Granulocytes # (auto) 0.04 K/uL (0.01-0.20); Immature Granulocytes % (auto) 0.4 %; Lymphocytes # (auto) 2.28 K/uL (1.2-3.4); Lymphocytes % (auto) 23.6 %; Mean Corpuscular Hemoglobin 32.4 pg (25.0-34.0); Mean Corpuscular Hgb Conc 33.9 g/dL (32.0-36.0); Mean Corpuscular Volume 95.4 fL (80.0-100.0); Monocytes # (auto) 0.74 K/uL (0.11-0.59); Monocytes % (auto) 7.7 %; Neutrophils # (auto) 6.42 K/uL (1.40-6.50); Neutrophils % (auto) 66.5 %; Platelet Count 41 K/uL (130-400); RDW Coefficient of Variation 13.7 % (11.5-14.5); RDW Standard Deviation 47.8 fL (36.4-46.3); Red Blood Count 4.54 M/uL (4.20-5.40); White Blood Count 9.66 K/ul (4.8-10.8)
--- NOTE | 2022-07-06 09:51 | XRay Report ---
XR chest 1V portable CLINICAL HISTORY: syncope CHI COMPARISON STUDY: Chest radiograph February 14, 2022. FINDINGS: Bilateral shoulder arthroplasties are present. Lung volumes are normal. Lungs are clear. Th ere is no pneumothorax or pleural effusion. Cardiac size is normal. Mediastinal contours are normal. There is no evidence for pulmonary edema. IMPRESSION: No acute cardiopulmonary findings. No change in appearance of the chest. ACT 112: Negative or not required by law. Electronically signed by: Tree Soto M.D. 07/06/2022 9:50 AM
[2022-07-06] MEDS: PANTOprazole 40 MG in DEXTROSE 5% 100 ML IV SCH ×4 (09:53→21:12)
[2022-07-06 10:12] LABS: Troponin I High Sensitivity 212.4 pg/ml (0-14)
[2022-07-06] MEDS ORDERED: Heparin IV Adult Wt-Based Low-Dose WITH Bolus Protocol STA (10:29)
[2022-07-06] MEDS ORDERED: HEPARIN SOD (PORCINE) 1000 UNIT/ML IV ONE ×2 (10:44→11:15)
[2022-07-06] MEDS ORDERED: HEPARIN SODIUM/DEXTROSE 25,000 UNITS/500 ML BAG IV SCH (10:45)
[2022-07-06] MEDS ORDERED: Heparin IV Adult Wt-Based Low-Dose WITH Bolus Protocol IV SCH (10:45)
[2022-07-06] MEDS ORDERED: OPTIRAY 320 500ml IV ONE (10:47)
--- NOTE | 2022-07-06 11:13 | CT Scan Report ---
CT ANGIOGRAPHY OF THE CHEST, PULMONARY EMBOLUS PROTOCOL CLINICAL HISTORY: PE COMPARISON STUDY: Chest radiograph performed earlier today. TECHNIQUE: Following IV administration of 109 mL of Optiray, helical axial images of the chest were o btained utilizing the pulmonary embolus protocol. Maximal intensity projections and sagittal and cor onal reformats were viewed on an independent 3D workstation. IV contrast was administered without co mplication. Automated exposure control was utilized for the study. A dose lowering technique was ut ilized adhering to the principles of ALARA. CT DOSE: 564.08 mGy.cm FINDINGS: There are extensive bilateral pulmonary emboli. This includes extensive emboli within the right pulmonary artery which are nearly occlusive. There is minimal opacification of the right-sided pulmonary arteries. There are emboli within the distal left pulmonary artery extending into the lobar and segmental branches of the left lung. No pulmonary infarct is noted. There is mild dilatation of the right heart chambers. Mild cardiomegaly is present. There is no pericardial effusion. No thoracic aortic dissection. No thoracic lymphadenopathy. Ground glass and linear opacities favor atelectasis. There is no pneumothorax or pleural effusion. No acute fractures within the bony structures are note d. A 2.2 cm water attenuation right renal lesion favors a cyst. Calcification granulomas within the s pleen are present. Bilateral shoulder arthroplasties are incidentally noted. IMPRESSION: 1. Extensive bilateral pulmonary emboli, including nearly occlusive emboli within the right pulmonary artery. Mild dilatation of the right heart chambers may reflect right heart strain. 2. No pulmonary infarct. ACT 112: Negative or not required by law. Electronically signed by: Tree Soto M.D. 07/06/2022 11:11 AM
[2022-07-06 11:30] LABS: INR 1.2 (0.9-1.1); Partial Thromboplastin Time 28.1 Seconds (21.0-31.0); Prothrombin Time 12.5 Seconds (9.0-12.0)
[2022-07-06] MEDS ORDERED: Heparin IV Adult Wt-Based Standard *NO* Bolus Protocol IV SCH (12:10)
[2022-07-06] MEDS: HEPARIN SODIUM/DEXTROSE 25,000 UNITS/500 ML BAG IV SCH (12:17)
--- NOTE | 2022-07-06 12:38 | History & Physical Report ---
Date of Service July 06, 2022 Assessment & Plan (1) Bilateral pulmonary embolism: Plan: Extensive bilateral PE, intermediate/high risk, acute, unstable. With CT evidence of right heart strain and elevated cardiac biomarkers, but no hypotension. No ventricular tachyarrhythmia. No acute respiratory failure, paradoxic bradycardia, vasopressor requirement, or shock Case was reviewed by [facility]. As patient is not hypotensive does not currently meet criteria for thrombectomy. tPA/TNKase not recommended as she is not hemodynamically unstable, and is at elevated risk with thrombocytopenia which may be consumptive in the setting of PE, no prior history of thrombocytopenia Hemoglobin 14.7, MCV 95, PLT 41 on admission Patient recommended for admission to PCU. If she becomes hypotensive, will need to transfer at that time for possible embolectomy otherwise recommended to be continued on heparin for 48 hours and then consideration of conversion to DOAC if doing well No prior history of blood clots or coagulopathy. Patient has had 1 miscarriag e, no family history of recurrent miscarriages or personal history of recurrent miscarriages. No prior long trips, no tobacco use. Patient notes 1 month ago she did strike her right leg and had some swelling for a few days which then improved, but did not make much note of this at the time. Has had 2 shoulder replacements, and one knee replacement while without postop complications. No known history of cancer, is up-to-date on colonoscopy/mammography. Most recent surgery was shoulder replacement was the left shoulder which was performed 02/2022. Continue heparin GTT CBC every 4 hours Type and cross completed Occult positive stool Patient with no history of GERD or epigastric pain, does use naproxen or ibuprofen about twice a week and with history of hiatal hernia. Endorses 1 loose bowel movement with diarrhea which was dark brown, does not think this was black but was darker brown than normal. Denies history of melena/tarry stools Hemoglobin normal on admission Continue PPI, will convert to twice daily IV push following bolus Trend CBC as noted N.p.o. while initial H&H trend is completed, if H&H stable over next 12 hours can advance diet History of hiatal hernia With increased risk of bleeding due to intermittent NSAID use Denies melena/tarry stool, 1 episode of diarrhea which was dark brown more so than usual Continue Protonix IV twice daily at this time CBD trended as above Hypothyroidism Continue Synthroid Hypertension Hold losartanhydrochlorothiazide in the setting of mild KOKO Continue amlodipine Type II DM N.p.o. pending initial hemoglobin stability Basal bolus weight-based ordered Basal dose reduced while n.p.o. Goal BSG [id number] Glucose checks AC/at bedtime, or every 4 hours while NPO DVT prophylaxis: Heparinized Disposition: PCU Diet: N.p.o. pending initial hemoglobin stability CODE STATUS: Full code (2) Hiatal hernia: (3) Type 2 diabetes mellitus: (4) Status post reverse total replacement of left shoulder: (5) Obesity (BMI 30.0-34.9): (6) Mild reactive airways disease: (7) Stage 3a chronic kidney disease (CKD): History of Present Illness Primary Care Provider: Grant Sena MD Kayla is a 77-year-old female with a past medical history of type II DM, hypertension, hypothyroidism, obesity, CKD 3, peripheral vascular disease, and reactive airway disease on aspirin 81 mg daily and no anticoagulants who presented after syncopal episode 1 week ago with recurrent dizziness. On CTA in ER she has extensive bilateral pulmonary emboli, with nearly occlusive right pulmonary artery emboli and mild dilation of the right heart chambers suspicious for right heart strain although no hypotension. No pulmonary infarct is noted. CT of the head and CXR of the chest were normal. Presents with SoB worsening in last week with 1 episode of syncope walkin gback from the bathroom. PEs on T. Pt denies recent travel. Hit R leg on something and swelled up a little bit, swelling improved but was present around her calf and tibia for few days an improved after 1-2 days with ice. No shortness of breath or syncope at that time. Symptoms started thsi past Saturday and had 1x episode of syncope while she was brushing her teeth getting ready for work in the bathroom. Had some dizziness prior, was walking to bed and lost conciousness. heard a thud and found her laying on the floor. R eye black and blue from glasses. Second episode of dizziness which is not present at rest or standing, but when she is walking gets a little dizzy and very short of breath. No chest pain at any point. Denies any point other than under her eye, No belly pain. Denies bleeding. No bloody or black bowel movements. Had 1x episode of diarrhea today which was very loose and slightly darker than normal. No abdominal tenderness. Uses NSAIDs. Uses alieve and ibuprofen intermittently for headache in the past, uses ~2 doses of one or the other weekly. Hx of hiatal hernia for which she takes omeprazole daily No alcohol no tobacco use Takes aspirin 81mg daily since age 48, no hx MA or CVA. Took Medicines Albuterol PRN, has not used recently Hx of 1x miscarriage, hx of DNC due to an episode of bleeding. Left shoulder replacement Mar [address] Linder, right shoulder 2 years prior to that Hx R 2nd toe resectiona after corn resection did not heal, ~5 years ago with no complications. Has been dieting in year due to diabetes, some weight loss to lower A1C from 10.5 and has worked to get it down under 7.5%. 30lb weight loss in the last year. Some night sweats rarely, none consistently. Menopausal. Colonoscopies regularly, last was <10 years recommended for 10 year followup. No colorectal cancer. Sister had hx of leukemia, MGM had 'some inward cancer not sure what time.' Neice breast cancer. Pt has had annual mammograms which have been normal. Denies fhx of blood clots, MA, and CVA. Medical History: Reviewed Medications: Reviewed. Took meds this morning. Surgical History: Reviewed. Had knee and both shoulder replaced, no hx of blood clots. Was just on aspirin daily postop. Family history: Reviewed Allergies: Reviewed Social History: No tobacco/etoh Code Status: Full Allergies Allergy/AdvReac Type Severity Reaction Status Date / Time oxycodone [From OxyContin] Allergy Intermediate Hallucinati Verified 03/16/22 07:17 ons adhesive tape AdvReac Mild Skin Verified 03/16/22 07:17 reaction Home Medications Medication Instructions Recorded Confirmed Type aspirin 81 mg tablet 81 mg PO QAM 12/09/18 07/06/22 History lactobacillus combination no.4 3 3,000 mmu cells PO QAM 05/12/20 07/06/22 History billion cell capsule (Probiotic) potassium gluconate 595 mg (99 mg) 595 mg PO QAM 05/12/20 07/06/22 History tablet magnesium 500 mg tablet 250 mg PO QAM 04/05/21 07/06/22 History albuterol sulfate 90 mcg/actuation 2 puff inhalation Q6H PRN 05/17/21 07/06/22 Rx aerosol inhaler (Proventil HFA) shortness of breath or wheezing #8.5 grams nystatin 100,000 unit/gram topical 1 applic topical BID #60 grams 09/11/21 07/06/22 Rx powder Beet Root 1 tab PO QAM 02/12/22 07/06/22 History biotin 10,000 mcg chewable tablet 10,000 mcg PO QAM 02/12/22 07/06/22 History (Hair, Skin and Nails (biotin)) naproxen sodium 220 mg capsule 220 mg PO Q8H PRN Pain 02/12/22 07/06/22 History (Aleve) prednisolone acetate 1 % eye 1 drp OPR QAM 02/12/22 07/06/22 History drops,suspension valacyclovir 1 gram tablet 1,000 mg PO QAM 02/12/22 07/06/22 History metformin 500 mg tablet,extended 1,000 mg PO BID #360 tabs 03/14/22 07/06/22 Rx release 24 hr amlodipine 5 mg tablet 5 mg PO DAILY 07/06/22 07/06/22 History glipizide 2.5 mg tablet, extended 2.5 mg PO DAILY 07/06/22 07/06/22 History release 24 hr levothyroxine 100 mcg tablet 100 mcg PO DAILY 07/06/22 07/06/22 History losartan 100 1 tab PO DAILY 07/06/22 07/06/22 History mg-hydrochlorothiazide 25 mg tablet omeprazole 40 mg capsule,delayed 40 mg PO DAILY 07/06/22 07/06/22 History release Past Med/Surg History Medical History Arthritis of both feet Asthma Controlled Degenerative disc disease Diabetes mellitus, type 2 A1C 7.1% 10/26/21 Eczema GERD (gastroesophageal reflux disease) Hiatal hernia History of COVID-19 Mid 11/2021 (home test), cough and nasal congestion > resolved Hypertension Hypothyroidism Osteoarthritis Peripheral vascular disease Stage 3a chronic kidney disease (CKD) Urethral stenosis "Small urethra" per pt, requiring "small Kapadia catheter" Viral eye infection Right eye being treated by Dr. Washington, taking valcyclovir and prednisone eye drops (per pt, Dr. Washington told her no issue with upcoming orthopedic surgery from their perspective) Surgical History Acquired toe deformity amputation right second toe Hammertoes of both feet corrected History of blepharoplasty upper lid w/ excessive skin History of bunionectomy RT History of cataract surgery RT History of colonoscopy History of cornea transplant RT SIDE History of dilation and curettage History of endometrial biopsy without cervical dilation History of esophagogastroduodenoscopy (EGD) History of tooth extraction History of total right knee replacement History of varicose vein ligation LEFT Hx of foot surgery Right 2nd toe amputation (11/10/20): MAC at [facility] Status post reverse total replacement of right shoulder Right reverse TSA (06/10/20): LMA#4 + PNB at [facility]. No issues noted per post-op anesthesia progress note. 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 NAD. Cooperative. HEENT: Atraumatic, normocephalic. Vision/hearing grossly intact. Pupils equal and reactive to light Pulm: CTAB A&P. -wheezes, -rales, -rhonchi. Symmetrical chest rise. No increased work of breathing. No respiratory distress. Cardiac: Regular, tachycardic. Radial pulses intact and symmetrical. Abdominal: Nontender, nondistended, soft. BS present. Extremities: Warm, dry. No calf asymmetry. PT pulses intact bilaterally. No pedal edema bilaterally Results & Data Results & Data Vital Signs (Past 12 Hours) Vital Signs Temp Pulse Pulse Resp BP BP Pulse Ox 07/06/22 12:00 91 H 15 94 07/06/22 12:00 150/109 H 07/06/22 11:51 175/111 H 94 07/06/22 11:51 92 H 21 07/06/22 11:45 100 H 25 H 07/06/22 11:30 93 H 21 94 07/06/22 11:00 96 H 23 07/06/22 11:00 142/106 H 07/06/22 10:30 88 20 94 07/06/22 10:30 138/100 07/06/22 10:00 92 H 22 133/94 93 07/06/22 09:30 105 H 23 124/87 93 07/06/22 09:00 103 H 24 116/91 95 07/06/22 09:04 98 H 16 116/91 96 07/06/22 08:48 105 H 07/06/22 08:27 36.7 C 112 H 18 139/90 92 O2 Del Method 07/06/22 12:00 Room Air 07/06/22 12:00 07/06/22 11:51 Room Air 07/06/22 11:51 07/06/22 11:45 07/06/22 11:30 Room Air 07/06/22 11:00 07/06/22 11:00 07/06/22 10:30 07/06/22 10:30 07/06/22 10:00 07/06/22 09:30 07/06/22 09:00 07/06/22 09:04 Room Air 07/06/22 08:48 07/06/22 08:27 Room Air PG Care Time/CCT Total # of Minutes Spent Total Time Spent with Patient: Total time spent is greater than 50% in coordination of care (as documented) at patient's floor/unit and/or counseling patient: Coding Level of Care Code 98545 INT INP/OBS CARE 3/75MIN Diagnoses Bilateral pulmonary embolism I26.99 Hiatal hernia K44.9 Type 2 diabetes mellitus E11.9 Status post reverse total replacement of left shoulder Z96.612 Obesity (BMI 30.0-34.9) E66.9 Mild reactive airways disease J45.909 Stage 3a chronic kidney disease (CKD) N18.31
[2022-07-06] MEDS: PLASMA-LYTE A 1,000 ML IV SCH ×2 (13:50→22:49)
--- NOTE | 2022-07-06 13:54 | Ultrasound Report ---
BILATERAL LOWER EXTREMITY VENOUS DOPPLER HISTORY: Screening for DVT in a patient with pulmonary emboli DVT, large PE on CT COMPARISON STUDY: None. FINDINGS: There is normal compressibility, flow, and augmentation within the bilateral lower extremit y deep venous systems. Mild linear stranding noted within the common femoral/greater saphenous juncti on. 4.3 cm Mojica's cyst. IMPRESSION: 1. No acute DVT. 2. Mild linear stranding within the common femoral and greater saphenous junction suggestive of a chr onic nonocclusive thrombus. ACT 112: Negative or not required by law. Electronically signed by: Julio César Emery M.D. 07/06/2022 1:53 PM
[2022-07-06] MEDS ORDERED: CARBOHYDRATES FOR HYPOGLYCEMIA PO PRN (14:14)
[2022-07-06] MEDS ORDERED: GLUCOSE 40% GEL 15 GM TUBE PO PRN (14:14)
[2022-07-06] MEDS ORDERED: ACETAMINOPHEN 325 MG TAB PO PRN (14:14)
[2022-07-06] MEDS ORDERED: GLUCOSE 10 TAB/TUBE PO PRN (14:14)
[2022-07-06] MEDS ORDERED: GLUCAGON FOR INJ 1 MG VIAL SQ PRN (14:14)
[2022-07-06] MEDS ORDERED: DEXTROSE 50% 50 ML SYRINGE IV PRN (14:14)
[2022-07-06 15:31] LABS: Hematocrit (blood only) 38.8 % (37.0-47.0); Hemoglobin 13.3 g/dl (12.0-16.0); Mean Corpuscular Hemoglobin 32.3 pg (25.0-34.0); Mean Corpuscular Hgb Conc 34.3 g/dL (32.0-36.0); Mean Corpuscular Volume 94.2 fL (80.0-100.0); Mean Platelet Volume 12.8 fL (9.4-12.4); Platelet Count 41 K/uL (130-400); RDW Coefficient of Variation 13.7 % (11.5-14.5); RDW Standard Deviation 47.1 fL (36.4-46.3); Red Blood Count 4.12 M/uL (4.20-5.40); White Blood Count 7.05 K/ul (4.8-10.8)
[2022-07-06] MEDS: INSULIN ASPART PER UNIT CHARGE SC SCH ×2 (16:59→21:02)
--- NOTE | 2022-07-06 19:04 | XCELERA ---
[id number]
[2022-07-06 19:18] LABS: Partial Thromboplastin Ratio 3.3
[2022-07-06 19:23] LABS: Partial Thromboplastin Time 93.5 Seconds (21.0-31.0)
[2022-07-06 20:48] LABS: Hematocrit (blood only) 38.9 % (37.0-47.0); Hemoglobin 13.4 g/dl (12.0-16.0); Mean Corpuscular Hemoglobin 32.2 pg (25.0-34.0); Mean Corpuscular Hgb Conc 34.4 g/dL (32.0-36.0); Mean Corpuscular Volume 93.5 fL (80.0-100.0); Mean Platelet Volume 11.4 fL (9.4-12.4); Platelet Count 45 K/uL (130-400); RDW Coefficient of Variation 13.6 % (11.5-14.5); RDW Standard Deviation 46.2 fL (36.4-46.3); Red Blood Count 4.16 M/uL (4.20-5.40); White Blood Count 7.85 K/ul (4.8-10.8)
[2022-07-06] MEDS: PANTOprazole 40 MG in SYRINGE 0 ML IV SCH (21:17)
[2022-07-06] MEDS: LANTUS PER UNIT CHARGE SQ SCH (21:17)
[2022-07-07 02:54] LABS: Basophils # (auto) 0.05 K/uL (0-0.2); Basophils % (auto) 0.7 %; Eosinophils # (auto) 0.16 K/uL (0-0.50); Eosinophils % (auto) 2.3 %; Hematocrit (blood only) 37.3 % (37.0-47.0); Immature Granulocytes # (auto) 0.03 K/uL (0.01-0.20); Immature Granulocytes % (auto) 0.4 %; Lymphocytes # (auto) 2.21 K/uL (1.2-3.4); Lymphocytes % (auto) 31.8 %; Mean Corpuscular Hemoglobin 32.4 pg (25.0-34.0); Mean Corpuscular Hgb Conc 34.9 g/dL (32.0-36.0); Mean Platelet Volume 12.3 fL (9.4-12.4); Monocytes # (auto) 0.65 K/uL (0.11-0.59); Monocytes % (auto) 9.4 %; Neutrophils # (auto) 3.85 K/uL (1.40-6.50); Neutrophils % (auto) 55.4 %; Platelet Count 52 K/uL (130-400); RDW Coefficient of Variation 13.5 % (11.5-14.5); RDW Standard Deviation 46.4 fL (36.4-46.3); Red Blood Count 4.01 M/uL (4.20-5.40); White Blood Count 6.95 K/ul (4.8-10.8)
[2022-07-07 03:28] LABS: BUN Creatinine Ratio 21.3 (10-20); Creatinine Clr Calc Pharmacy 53.1 ml/min; Est GFR (African American) 71.4 ml/min; Est GFR (Non-African American) 61.6 ml/min; Potassium 3.7 mmol/L (3.5-5.1)
[2022-07-07 03:36] LABS: Partial Thromboplastin Ratio 2.1
[2022-07-07 03:57] LABS: Partial Thromboplastin Time 60.3 Seconds (21.0-31.0)
--- NOTE | 2022-07-07 06:40 | Electrocardiogram Report ---
Test Reason : Blood Pressure : / mmHG Vent. Rate : 110 BPM Atrial Rate : 110 BPM P-R Int : 170 ms QRS Dur : 112 ms QT Int : 350 ms P-R-T Axes : 072 -01 -42 degrees QTc Int : 473 ms Sinus tachycardia with occasional Premature ventricular complexes Low voltage QRS Right bundle branch block Inferior infarct , age undetermined T wave abnormality, consider anterior ischemia Abnormal ECG When compared with ECG of 14-FEB-2022 10:57, Premature ventricular complexes are now Present Premature atrial complexes are no longer Present Right bundle branch block is now Present Confirmed by Charles Patel ([id number]) on 07/07/2022 6:40:04 AM Referred By: REFERRED SELF Confirmed By:Charles Patel
[2022-07-07 06:57] LABS: Hematocrit (blood only) 39.7 % (37.0-47.0); Hemoglobin 13.6 g/dl (12.0-16.0); Mean Corpuscular Hemoglobin 32.2 pg (25.0-34.0); Mean Corpuscular Hgb Conc 34.3 g/dL (32.0-36.0); Mean Corpuscular Volume 94.1 fL (80.0-100.0); Platelet Count 57 K/uL (130-400); RDW Coefficient of Variation 13.7 % (11.5-14.5); RDW Standard Deviation 46.1 fL (36.4-46.3); Red Blood Count 4.22 M/uL (4.20-5.40); White Blood Count 6.06 K/ul (4.8-10.8)
[2022-07-07] MEDS: LEVOTHYROXINE SODIUM 100 MCG TABLET PO SCH (07:36)
[2022-07-07] MEDS: PANTOprazole 40 MG in SYRINGE 0 ML IV SCH ×2 (07:38→20:37)
[2022-07-07] MEDS: amLODIPine BESYLATE 5 MG TAB PO SCH (07:39)
[2022-07-07] MEDS: valACYclovir HCL 500 MG TABLET PO SCH (07:39)
[2022-07-07] MEDS: PLASMA-LYTE A 1,000 ML IV SCH ×2 (07:46→16:50)
[2022-07-07] MEDS: INSULIN ASPART PER UNIT CHARGE SC SCH ×4 (07:48→20:36)
[2022-07-07] MEDS: LANTUS PER UNIT CHARGE SQ SCH ×2 (08:14→20:35)
[2022-07-07 08:53] LABS: Estimated Average Glucose 143 mg/dl; Hemoglobin A1C 6.6 % (4.5-5.6)
[2022-07-07] MEDS ORDERED: PHARMACY GLYCEMIC MGMT CONSULT PRN (09:49)
[2022-07-07 10:39] LABS: Hematocrit (blood only) 37.7 % (37.0-47.0); Mean Corpuscular Hemoglobin 32.3 pg (25.0-34.0); Mean Corpuscular Hgb Conc 34.5 g/dL (32.0-36.0); Mean Corpuscular Volume 93.8 fL (80.0-100.0); Mean Platelet Volume 12.2 fL (9.4-12.4); Platelet Count 59 K/uL (130-400); RDW Coefficient of Variation 13.8 % (11.5-14.5); RDW Standard Deviation 46.7 fL (36.4-46.3); Red Blood Count 4.02 M/uL (4.20-5.40)
[2022-07-07 11:07] LABS: Fibrinogen 301 mg/dl (184-400)
[2022-07-07] MEDS ORDERED: ALBUTEROL HFA 8 GM INHALER INH PRN (11:37)
[2022-07-07] MEDS: HEPARIN SODIUM/DEXTROSE 25,000 UNITS/500 ML BAG IV SCH (11:55)
--- NOTE | 2022-07-07 12:04 | Hospitalist Progress Note ---
Date of Service July 07, 2022 Assessment & Plan (1) Bilateral pulmonary embolism: Plan: Extensive bilateral PE, intermediate/high risk, acute, unstable. - With CT evidence of right heart strain and elevated cardiac biomarkers, but no hypotension. No ventricular tachyarrhythmia. No acute respiratory failure, paradoxic bradycardia, vasopressor requirement, or shock. - Case was reviewed by [facility]. As patient is not hypotensive does not currently meet criteria for thrombectomy. tPA/TNKase not recommended as she is not hemodynamically unstable. - Doppler 07/06 with stranding within the common femoral and greater saphenous junction suggestive of chronic nonocclusive thrombus. - Remains on Heparin drip, currently therapeutic. Plan to convert to DOAC therapy following 48 hour period (pending improvement in thrombocytopenia). - Denies h/o VTE or family history of VTE. Patient has had 1 miscarriage, no personal history of recurrent miscarriages. No prior long trips, no tobacco use. Patient notes ~1 month ago she did strike her right leg and had some swelling for a few days which then improved, but did not make much note of this at the time. Has had 2 shoulder replacements, and one knee replacement while without postop complications. No known history of cancer, is up-to-date on mammography. Most recent surgery was shoulder replacement was the left shoulder which was performed 02/2022. - Highly recommend obtaining screening colonoscopy following stabilization. - She will benefit from outpatient hematology follow up, due to thrombocytopenia and to discuss hypercoagulable factors. (2) Thrombocytopenia: Plan: - Plt count decreased to 41K on 07/06, prior to starting Heparin drip. Therefore this is not related to HIT. - Does not have history of thrombocytopenia in the past, denies recent heparin use prior to this admission. - Peripheral smear pending; Ferritin 32, Iron 44, B12 347, Folate 15.6. INR was mildly prolonged, Fibrinogen level 301. - We will administer pulse dose Dexamethasone 40 mg PO daily x 4 days for treatment of ITP, goal plt >50K. - If she does not have improvement with steroids, she will require BMBx early next week for evaluation. - Curbsided general agent physician interventional cardiologist, recommend official consult if no improvement in thrombocytopenia. (3) Heme positive stool: Plan: Occult positive stool - Patient with no history of GERD or epigastric pain, does use naproxen or ibuprofen about twice a week and with history of hiatal hernia. - Continue PPI IV BID in setting of steroids. - Most recent colonoscopy >5 years ago per patient, highly recommend updating once she is stabilized. - Advanced to CLD, as she will not require procedure at this time. - H/H levels have remained stable. (4) Hiatal hernia: Plan: History of hiatal hernia With increased risk of bleeding due to intermittent NSAID use Continue Protonix IV twice daily at this time (5) Type 2 diabetes mellitus: Plan: Basal bolus weight-based ordered Pharmacy glycemic consult ordered in setting of high dose steroids. - Updated Hgb A1C is 6.6. (6) Obesity (BMI 30.0-34.9): Plan: - BMI 28.7. (7) Mild reactive airways disease: Plan: - Stable. (8) Stage 3a chronic kidney disease (CKD): Plan: GFR 61.6. (9) Hypothyroidism: Plan: Continue Synthroid. - Most recent TSH 0.430 on 06/28/21. (10) Hypertension: Plan: Hold losartanhydrochlorothiazide. BP has been stable. Continue Amlodipine. DVT prophylaxis: Heparin drip with close monitoring of plt counts. Disposition: PCU. Discharge pending transition to DOAC therapy along with improvement in thrombocytopenia. Diet: CLD, advance as tolerated. CODE STATUS: Full code Admission and Anticipated Discharge Date Admission Date: July 06, 2022 [address]ive Mrs. Hurley is a very pleasant 77 y/o female who is currently admitted for DVT/PE diagnosis, remains on Heparin drip. She does not have major provoking factors, with the exception of shoulder surgery in along with lower extremity injury. Denies h/o DVT/PE diagnosis or family history of venous thromboembolism. She fell at home on 07/04, leading to significant ecchymosis in periorbital region. She did not present to the hospital until 07/06, due to dizziness. She is up to date on screening mammograms. Has not completed colonoscopy for >5 years, per patient. CTA chest was negative for malignancy, has not had recent CT AP imaging. She denies significant pleuritic chest pain or SOB at this time. Vital signs have remained stable, in sinus rhythm overnight with occasional PVCs. Review of Systems Review of Systems: Constitutional: Negative for weight loss, night sweats, or fever Eyes: Negative for event change of vision ENT: Negative for epistaxis, nasal discharge, sore throat, or deafness Cardiovascular: Negative for anginal type chest pain, palpitations, dizziness, diaphoresis Respiratory: Negative for new shortness of breath,hemoptysis, or purulent cough Gastrointestinal: Negative for diarrhea, hematemesis, melena, nausea, vomiting, or dyspepsia Integumentary (skin): Negative for rash or jaundice discoloration Genitourinary: Negative for urinary frequency, hematuria, or dysuria Neurological: Negative for weakness, seizure activity, headache, or dizziness Lymphatic/Hematologic: Negative for petechiae, bleeding or new adenopathy Musculoskeletal: Negative for new joint or back pain Allergic/Immunologic: Negative for unusual rash or pruritis Physical Exam Physical Exam: Constitutional: Vitals are stable Neck: Negative for masses or palpable thyromegaly Respiratory: Lung sounds were generally clear bilaterally. Cardiovascular: Heart was RRR without significant murmur, gallops or rubs. Musculoskeletal System: The musculoskeletal system seemed concordant with age. Skin: The skin was negative for jaundice. Extremities: Negative for edema or erythema. Results & Data Results & Data Vital Signs (Past 12 Hours) Vital Signs Temp Pulse Pulse Resp BP Pulse Ox O2 Del Method 07/07/22 11:29 36.6 C 94 H 19 136/87 95 Room Air 07/07/22 08:00 88 07/07/22 07:04 36.4 C L 102 H 20 142/93 H 91 Room Air 07/07/22 03:42 36.5 C 88 18 140/95 92 Room Air Laboratory Results 07/07/22 07/07/22 07/07/22 Range/Units 11:00 10:13 10:13 WBC (4.8-10.8) K/ul RBC (4.20-5.40) M/uL Hgb (12.0-16.0) g/dl Hct (37.0-47.0) % MCV (80.0-100.0) fL MCH (25.0-34.0) pg MCHC (32.0-36.0) g/dL RDW Std Deviation (36.4-46.3) fL RDW Coeff of Rico (11.5-14.5) % Plt Count (130-400) K/uL MPV (9.4-12.4) fL Immature Gran % (Auto) % Neut % (Auto) % Lymph % (Auto) % Ness % (Auto) % Eos % (Auto) % Baso % (Auto) % Neut # (Auto) (1.40-6.50) K/uL Lymph # (Auto) (1.2-3.4) K/uL Ness # (Auto) (0.11-0.59) K/uL Eos # (Auto) (0-0.50) K/uL Baso # (Auto) (0-0.2) K/uL Immature Gran # (Auto) (0.01-0.20) K/uL Peripher Smr Path Cons APTT (21.0-31.0) Seconds PTT Ratio Fibrinogen 301 (184-400) mg/dl Sodium (136-145) mmol/L Potassium (3.5-5.1) mmol/L Chloride (98-107) mmol/L Carbon Dioxide (21-32) mmol/L Anion Gap (3-11) BUN (6-23) mg/dl Creatinine (0.6-1.2) mg/dl Est Cr Clr Drug Dosing ml/min Est GFR ( Amer) ml/min Est GFR (Non-Af Amer) ml/min BUN/Creatinine Ratio (10-20) Glucose (70-99(Fasting)) mg/dl POC Glucose 119 H (70-99) mg/dl Estimat Average Glucose mg/dl Hemoglobin A1c (4.5-5.6) % Calcium (8.6-10.3) mg/dl Iron (35-150) mcg/dl Ferritin (8-388) ng/ml Troponin I High Sens (0-14) pg/ml Vitamin B12 347 (180-914) pg/ml Folate 15.62 (>5.38) ng/ml SARS-CoV-2, RNA, NAAT (NEGATIVE) 07/07/22 07/07/22 07/07/22 Range/Units 10:13 10:13 07:38 WBC 6.70 (4.8-10.8) K/ul RBC 4.02 L (4.20-5.40) M/uL Hgb 13.0 (12.0-16.0) g/dl Hct 37.7 (37.0-47.0) % MCV 93.8 (80.0-100.0) fL MCH 32.3 (25.0-34.0) pg MCHC 34.5 (32.0-36.0) g/dL RDW Std Deviation 46.7 H (36.4-46.3) fL RDW Coeff of Rico 13.8 (11.5-14.5) % Plt Count 59 L (130-400) K/uL MPV 12.2 (9.4-12.4) fL Immature Gran % (Auto) % Neut % (Auto) % Lymph % (Auto) % Ness % (Auto) % Eos % (Auto) % Baso % (Auto) % Neut # (Auto) (1.40-6.50) K/uL Lymph # (Auto) (1.2-3.4) K/uL Ness # (Auto) (0.11-0.59) K/uL Eos # (Auto) (0-0.50) K/uL Baso # (Auto) (0-0.2) K/uL Immature Gran # (Auto) (0.01-0.20) K/uL Peripher Smr Path Cons Pending APTT (21.0-31.0) Seconds PTT Ratio Fibrinogen (184-400) mg/dl Sodium (136-145) mmol/L Potassium (3.5-5.1) mmol/L Chloride (98-107) mmol/L Carbon Dioxide (21-32) mmol/L Anion Gap (3-11) BUN (6-23) mg/dl Creatinine (0.6-1.2) mg/dl Est Cr Clr Drug Dosing ml/min Est GFR ( Amer) ml/min Est GFR (Non-Af Amer) ml/min BUN/Creatinine Ratio (10-20) Glucose (70-99(Fasting)) mg/dl POC Glucose 126 H (70-99) mg/dl Estimat Average Glucose mg/dl Hemoglobin A1c (4.5-5.6) % Calcium (8.6-10.3) mg/dl Iron 44 (35-150) mcg/dl Ferritin 32.0 (8-388) ng/ml Troponin I High Sens (0-14) pg/ml Vitamin B12 (180-914) pg/ml Folate (>5.38) ng/ml SARS-CoV-2, RNA, NAAT (NEGATIVE) 07/07/22 07/07/22 07/07/22 Range/Units 06:16 06:16 02:29 WBC 6.06 (4.8-10.8) K/ul RBC 4.22 (4.20-5.40) M/uL Hgb 13.6 (12.0-16.0) g/dl Hct 39.7 (37.0-47.0) % MCV 94.1 (80.0-100.0) fL MCH 32.2 (25.0-34.0) pg MCHC 34.3 (32.0-36.0) g/dL RDW Std Deviation 46.1 (36.4-46.3) fL RDW Coeff of Rico 13.7 (11.5-14.5) % Plt Count 57 L (130-400) K/uL MPV 13.0 H (9.4-12.4) fL Immature Gran % (Auto) % Neut % (Auto) % Lymph % (Auto) % Ness % (Auto) % Eos % (Auto) % Baso % (Auto) % Neut # (Auto) (1.40-6.50) K/uL Lymph # (Auto) (1.2-3.4) K/uL Ness # (Auto) (0.11-0.59) K/uL Eos # (Auto) (0-0.50) K/uL Baso # (Auto) (0-0.2) K/uL Immature Gran # (Auto) (0.01-0.20) K/uL Peripher Smr Path Cons APTT (21.0-31.0) Seconds PTT Ratio Fibrinogen (184-400) mg/dl Sodium (136-145) mmol/L Potassium (3.5-5.1) mmol/L Chloride (98-107) mmol/L Carbon Dioxide (21-32) mmol/L Anion Gap (3-11) BUN (6-23) mg/dl Creatinine (0.6-1.2) mg/dl Est Cr Clr Drug Dosing ml/min Est GFR ( Amer) ml/min Est GFR (Non-Af Amer) ml/min BUN/Creatinine Ratio (10-20) Glucose (70-99(Fasting)) mg/dl POC Glucose (70-99) mg/dl Estimat Average Glucose 143 mg/dl Hemoglobin A1c 6.6 H (4.5-5.6) % Calcium (8.6-10.3) mg/dl Iron (35-150) mcg/dl Ferritin (8-388) ng/ml Troponin I High Sens 149.5 H* (0-14) pg/ml Vitamin B12 (180-914) pg/ml Folate (>5.38) ng/ml SARS-CoV-2, RNA, NAAT (NEGATIVE) 07/07/22 07/07/22 07/07/22 Range/Units 02:29 02:29 02:29 WBC 6.95 (4.8-10.8) K/ul RBC 4.01 L (4.20-5.40) M/uL Hgb 13.0 (12.0-16.0) g/dl Hct 37.3 (37.0-47.0) % MCV 93.0 (80.0-100.0) fL MCH 32.4 (25.0-34.0) pg MCHC 34.9 (32.0-36.0) g/dL RDW Std Deviation 46.4 H (36.4-46.3) fL RDW Coeff of Rico 13.5 (11.5-14.5) % Plt Count 52 L (130-400) K/uL MPV 12.3 (9.4-12.4) fL Immature Gran % (Auto) 0.4 % Neut % (Auto) 55.4 % Lymph % (Auto) 31.8 % Ness % (Auto) 9.4 % Eos % (Auto) 2.3 % Baso % (Auto) 0.7 % Neut # (Auto) 3.85 (1.40-6.50) K/uL Lymph # (Auto) 2.21 (1.2-3.4) K/uL Ness # (Auto) 0.65 H (0.11-0.59) K/uL Eos # (Auto) 0.16 (0-0.50) K/uL Baso # (Auto) 0.05 (0-0.2) K/uL Immature Gran # (Auto) 0.03 (0.01-0.20) K/uL Peripher Smr Path Cons APTT (21.0-31.0) Seconds PTT Ratio Fibrinogen (184-400) mg/dl Sodium 139 (136-145) mmol/L Potassium 3.7 (3.5-5.1) mmol/L Chloride 103 (98-107) mmol/L Carbon Dioxide 26 (21-32) mmol/L Anion Gap 10 (3-11) BUN 19 (6-23) mg/dl Creatinine 0.89 D (0.6-1.2) mg/dl Est Cr Clr Drug Dosing 53.1 ml/min Est GFR ( Amer) 71.4 ml/min Est GFR (Non-Af Amer) 61.6 ml/min BUN/Creatinine Ratio 21.3 H (10-20) Glucose 99 (70-99(Fasting)) mg/dl POC Glucose (70-99) mg/dl Estimat Average Glucose mg/dl Hemoglobin A1c (4.5-5.6) % Calcium 9.0 (8.6-10.3) mg/dl Iron (35-150) mcg/dl Ferritin (8-388) ng/ml Troponin I High Sens 145.2 H* D (0-14) pg/ml Vitamin B12 (180-914) pg/ml Folate (>5.38) ng/ml SARS-CoV-2, RNA, NAAT (NEGATIVE) 07/07/22 07/06/22 07/06/22 Range/Units 02:29 20:53 20:07 WBC 7.85 (4.8-10.8) K/ul RBC 4.16 L (4.20-5.40) M/uL Hgb 13.4 (12.0-16.0) g/dl Hct 38.9 (37.0-47.0) % MCV 93.5 (80.0-100.0) fL MCH 32.2 (25.0-34.0) pg MCHC 34.4 (32.0-36.0) g/dL RDW Std Deviation 46.2 (36.4-46.3) fL RDW Coeff of Rico 13.6 (11.5-14.5) % Plt Count 45 L (130-400) K/uL MPV 11.4 (9.4-12.4) fL Immature Gran % (Auto) % Neut % (Auto) % Lymph % (Auto) % Ness % (Auto) % Eos % (Auto) % Baso % (Auto) % Neut # (Auto) (1.40-6.50) K/uL Lymph # (Auto) (1.2-3.4) K/uL Ness # (Auto) (0.11-0.59) K/uL Eos # (Auto) (0-0.50) K/uL Baso # (Auto) (0-0.2) K/uL Immature Gran # (Auto) (0.01-0.20) K/uL Peripher Smr Path Cons APTT 60.3 H* (21.0-31.0) Seconds PTT Ratio 2.1 Fibrinogen (184-400) mg/dl Sodium (136-145) mmol/L Potassium (3.5-5.1) mmol/L Chloride (98-107) mmol/L Carbon Dioxide (21-32) mmol/L Anion Gap (3-11) BUN (6-23) mg/dl Creatinine (0.6-1.2) mg/dl Est Cr Clr Drug Dosing ml/min Est GFR ( Amer) ml/min Est GFR (Non-Af Amer) ml/min BUN/Creatinine Ratio (10-20) Glucose (70-99(Fasting)) mg/dl POC Glucose 90 (70-99) mg/dl Estimat Average Glucose mg/dl Hemoglobin A1c (4.5-5.6) % Calcium (8.6-10.3) mg/dl Iron (35-150) mcg/dl Ferritin (8-388) ng/ml Troponin I High Sens (0-14) pg/ml Vitamin B12 (180-914) pg/ml Folate (>5.38) ng/ml SARS-CoV-2, RNA, NAAT (NEGATIVE) 07/06/22 07/06/22 07/06/22 Range/Units 20:07 17:58 16:36 WBC (4.8-10.8) K/ul RBC (4.20-5.40) M/uL Hgb (12.0-16.0) g/dl Hct (37.0-47.0) % MCV (80.0-100.0) fL MCH (25.0-34.0) pg MCHC (32.0-36.0) g/dL RDW Std Deviation (36.4-46.3) fL RDW Coeff of Rico (11.5-14.5) % Plt Count (130-400) K/uL MPV (9.4-12.4) fL Immature Gran % (Auto) % Neut % (Auto) % Lymph % (Auto) % Ness % (Auto) % Eos % (Auto) % Baso % (Auto) % Neut # (Auto) (1.40-6.50) K/uL Lymph # (Auto) (1.2-3.4) K/uL Ness # (Auto) (0.11-0.59) K/uL Eos # (Auto) (0-0.50) K/uL Baso # (Auto) (0-0.2) K/uL Immature Gran # (Auto) (0.01-0.20) K/uL Peripher Smr Path Cons APTT 93.5 H* (21.0-31.0) Seconds PTT Ratio 3.3 Fibrinogen (184-400) mg/dl Sodium (136-145) mmol/L Potassium (3.5-5.1) mmol/L Chloride (98-107) mmol/L Carbon Dioxide (21-32) mmol/L Anion Gap (3-11) BUN (6-23) mg/dl Creatinine (0.6-1.2) mg/dl Est Cr Clr Drug Dosing ml/min Est GFR ( Amer) ml/min Est GFR (Non-Af Amer) ml/min BUN/Creatinine Ratio (10-20) Glucose (70-99(Fasting)) mg/dl POC Glucose 112 H (70-99) mg/dl Estimat Average Glucose mg/dl Hemoglobin A1c (4.5-5.6) % Calcium (8.6-10.3) mg/dl Iron (35-150) mcg/dl Ferritin (8-388) ng/ml Troponin I High Sens 188.5 H* (0-14) pg/ml Vitamin B12 (180-914) pg/ml Folate (>5.38) ng/ml SARS-CoV-2, RNA, NAAT (NEGATIVE) 07/06/22 07/06/22 07/06/22 Range/Units 15:07 15:07 11:11 WBC 7.05 (4.8-10.8) K/ul RBC 4.12 L (4.20-5.40) M/uL Hgb 13.3 (12.0-16.0) g/dl Hct 38.8 (37.0-47.0) % MCV 94.2 (80.0-100.0) fL MCH 32.3 (25.0-34.0) pg MCHC 34.3 (32.0-36.0) g/dL RDW Std Deviation 47.1 H (36.4-46.3) fL RDW Coeff of Rico 13.7 (11.5-14.5) % Plt Count 41 L (130-400) K/uL MPV 12.8 H (9.4-12.4) fL Immature Gran % (Auto) % Neut % (Auto) % Lymph % (Auto) % Ness % (Auto) % Eos % (Auto) % Baso % (Auto) % Neut # (Auto) (1.40-6.50) K/uL Lymph # (Auto) (1.2-3.4) K/uL Ness # (Auto) (0.11-0.59) K/uL Eos # (Auto) (0-0.50) K/uL Baso # (Auto) (0-0.2) K/uL Immature Gran # (Auto) (0.01-0.20) K/uL Peripher Smr Path Cons APTT (21.0-31.0) Seconds PTT Ratio Fibrinogen (184-400) mg/dl Sodium (136-145) mmol/L Potassium (3.5-5.1) mmol/L Chloride (98-107) mmol/L Carbon Dioxide (21-32) mmol/L Anion Gap (3-11) BUN (6-23) mg/dl Creatinine (0.6-1.2) mg/dl Est Cr Clr Drug Dosing ml/min Est GFR ( Amer) ml/min Est GFR (Non-Af Amer) ml/min BUN/Creatinine Ratio (10-20) Glucose (70-99(Fasting)) mg/dl POC Glucose (70-99) mg/dl Estimat Average Glucose mg/dl Hemoglobin A1c (4.5-5.6) % Calcium (8.6-10.3) mg/dl Iron (35-150) mcg/dl Ferritin (8-388) ng/ml Troponin I High Sens 197.8 H* (0-14) pg/ml Vitamin B12 (180-914) pg/ml Folate (>5.38) ng/ml SARS-CoV-2, RNA, NAAT NEGATIVE (NEGATIVE) PG Care Time/CCT Total # of Minutes Spent Total Time Spent with Patient: Total time spent is greater than 50% in coordination of care (as documented) at patient's floor/unit and/or counseling patient: [place] [address] SUB INP/OBS CARE 2/35MIN Patient Type Established Diagnoses Bilateral pulmonary embolism I26.99 Thrombocytopenia D69.6 Heme positive stool R19.5 Hiatal hernia K44.9 Type 2 diabetes mellitus E11.9 Obesity (BMI 30.0-34.9) E66.9 Mild reactive airways disease J45.909 Stage 3a chronic kidney disease (CKD) N18.31 Hypothyroidism E03.9 Hypertension I10
[2022-07-07] MEDS: dexAMETHasone 4 MG TAB PO SCH (12:16)
[2022-07-07] MEDS: ALBUTEROL HFA 8 GM INHALER INH PRN (12:42)
[2022-07-08] MEDS: INSULIN ASPART PER UNIT CHARGE SC SCH ×6 (00:22→21:46)
[2022-07-08] MEDS: LEVOTHYROXINE SODIUM 100 MCG TABLET PO SCH (06:06)
[2022-07-08] MEDS: ALBUTEROL HFA 8 GM INHALER INH PRN (06:20)
[2022-07-08 07:44] LABS: Hemoglobin 13.7 g/dl (12.0-16.0); Immature Granulocytes # (auto) 0.12 K/uL (0.01-0.20); Immature Granulocytes % (auto) 1.7 %; Lymphocytes # (auto) 1.05 K/uL (1.2-3.4); Mean Corpuscular Hgb Conc 35.1 g/dL (32.0-36.0); Mean Corpuscular Volume 91.1 fL (80.0-100.0); Mean Platelet Volume 11.7 fL (9.4-12.4); Monocytes # (auto) 0.26 K/uL (0.11-0.59); Monocytes % (auto) 3.7 %; Neutrophils # (auto) 5.57 K/uL (1.40-6.50); Neutrophils % (auto) 79.6 %; Platelet Count 79 K/uL (130-400); RDW Coefficient of Variation 13.3 % (11.5-14.5); RDW Standard Deviation 44.5 fL (36.4-46.3); Red Blood Count 4.28 M/uL (4.20-5.40)
[2022-07-08 08:02] LABS: Albumin Globulin Ratio 1.2 (0.9-2); Albumin Level 4.1 gm/dl (3.4-5.0); BUN Creatinine Ratio 16.7 (10-20); Bilirubin,Total 0.5 mg/dl (0.2-1.0); Calcium 9.7 mg/dl (8.6-10.3); Creatinine Clr Calc Pharmacy 49.1 ml/min; Est GFR (African American) 65.2 ml/min; Est GFR (Non-African American) 56.2 ml/min; Globulin 3.4 gm/dl (2.5-4.0); Potassium 3.9 mmol/L (3.5-5.1); Total Protein 7.5 gm/dl (6.0-8.3)
[2022-07-08 08:11] LABS: Troponin I High Sensitivity 54.6 pg/ml (0-14)
[2022-07-08] MEDS: dexAMETHasone 4 MG TAB PO SCH ×2 (08:38→09:48)
[2022-07-08] MEDS: amLODIPine BESYLATE 5 MG TAB PO SCH (08:38)
[2022-07-08] MEDS: PANTOprazole 40 MG in SYRINGE 0 ML IV SCH ×2 (08:39→21:46)
[2022-07-08] MEDS: valACYclovir HCL 500 MG TABLET PO SCH (08:39)
[2022-07-08] MEDS: LANTUS PER UNIT CHARGE SQ SCH ×2 (08:42→21:46)
[2022-07-08] MEDS: HEPARIN SODIUM/DEXTROSE 25,000 UNITS/500 ML BAG IV SCH (09:00)
--- NOTE | 2022-07-08 09:11 | Hospitalist Progress Note ---
Date of Service July 08, 2022 Assessment & Plan (1) Bilateral pulmonary embolism: Plan: Extensive bilateral PE, intermediate/high risk, acute, unstable. - With CT evidence of right heart strain and elevated cardiac biomarkers, but no hypotension. No ventricular tachyarrhythmia. No acute respiratory failure, paradoxic bradycardia, vasopressor requirement, or shock. - Case was reviewed by [facility]. As patient is not hypotensive does not currently meet criteria for thrombectomy. tPA/TNKase not recommended as she is not hemodynamically unstable. - Doppler 07/06 with stranding within the common femoral and greater saphenous junction suggestive of chronic nonocclusive thrombus. - Remains on Heparin drip, therapeutic yesterday- PTT of 57 this AM. Plan to convert to DOAC therapy tomorrow. - Denies h/o VTE or family history of VTE. Patient has had 1 miscarriage, no personal history of recurrent miscarriages. No prior long trips, no tobacco use. Patient notes ~1 month ago she did strike her right leg and had some swelling for a few days which then improved, but did not make much note of this at the time. Has had 2 shoulder replacements, and one knee replacement while without postop complications. No known history of cancer, is [facility]. Most recent surgery was shoulder replacement was the left shoulder which was performed 02/2022. - Highly recommend obtaining screening colonoscopy following stabilization for heme positive stool. - She will benefit from outpatient hematology follow up, due to thrombocytopenia and to discuss hypercoagulable factors. - CBC, PTT in AM. (2) Thrombocytopenia: Plan: - Plt count decreased to 41K on 07/06, prior to starting Heparin drip. Therefore this is not related to HIT. Improved to 79K this AM. - Does not have history of thrombocytopenia in the past, denies recent heparin use prior to this admission. - Peripheral smear pending; Ferritin 32, Iron 44, B12 347, Folate 15.6. INR was mildly prolonged, Fibrinogen level 301. 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 79K this AM. - Continue to monitor. (3) Heme positive stool: Plan: Occult positive stool - Patient with no history of GERD or epigastric pain, does use naproxen or ibuprofen about twice a week; hx of hiatal hernia - Continue PPI IV BID in setting of steroids. - Most recent colonoscopy >5 years ago per patient, highly recommend updating once she is stabilized. - Denies hematochezia today (4) Hiatal hernia: Plan: With increased risk of bleeding due to intermittent NSAID use Continue Protonix IV twice daily at this time (5) Type 2 diabetes mellitus: Plan: - Last HgbA1c was 6.6% on 07/07/22. BSG of 164 this AM. - DM2 diet ordered Basal bolus weight-based ordered Pharmacy glycemic consult ordered in setting of high dose steroids. (6) Obesity (BMI 30.0-34.9): Plan: History of - BMI of 28.7 (7) Mild reactive airways disease: Plan: - Stable; monitor (8) Stage 3a chronic kidney disease (CKD): Plan: - Stable; Cr 0.96 this AM. - Monitor (9) Hypothyroidism: Plan: Continue Synthroid. - Most recent TSH 0.430 on 06/28/21. (10) Hypertension: Plan: Holding losartanhydrochlorothiazide. Continue Amlodipine - BP stable at 129/82; but was elevated this AM at 158/98. Continue to monitor. (11) Scalp contusion: Plan: Scalp contusion from fall prior to admission. - left frontal scalp contusion noted on CT from 07/06/22. No acute intracranial findings. - persists and is tender for patient since starting heparin. - patient is mentating without issue - Continue to monitor, continue conservative management - will likely take some time to resolve Plan DVT prophylaxis: Heparin drip with close monitoring of plt counts. Disposition: PCU. Discharge pending transition to DOAC therapy along with improvement in thrombocytopenia. Diet: CLD, advance as tolerated. CODE STATUS: Full code Admission and Anticipated Discharge Date Admission Date: July 06, 2022 Subjective 77 year old female admitted for bilateral PE. She remains on IV heparin drip. She notes ecchymosis under the eyes has worsened since starting the heparin. Contusion of the scalp continues to be swollen and painful as well. SOB is improving. She notes some diarrhea yesterday which has improved today. Review of Systems Review of Systems: All systems reviewed & are unremarkable except as noted in Subjective Physical Exam Physical Exam: Temp Pulse Resp BP Pulse Ox O2 Del Method 36.4 C L 96 H 19 158/98 H 92 Room Air 07/08/22 07:09 07/08/22 07:39 07/08/22 07:09 07/08/22 07:09 07/08/22 07:09 07/08/22 07:09 Patient is afebrile. She is hypertensive at 158/98, but is asymptomatic. Constitutional: average body habitus; no acute distress Eyes: + anicteric sclerae ENMT: Ears: no hearing impairment Neck: normal visual inspection Respiratory: normal respiratory effort, lungs clear to auscultation Cardiovascular: Rate/Rhythm: + tachycardic and + irregularly irregular V essels: no JVD Extremities: no edema Gastrointestinal (Abdomen): Inspection/Auscultation: normal bowel sounds Percussion/Palpation: abdomen soft; abdomen nontender Musculoskeletal: Head/Neck/Chest: + evidence of head trauma (large, tender contusion to frontal scalp) Skin: + ecchymosis (under the bilateral eyes ) Psychiatric: A+Ox3, euthymic affect Results & Data Results & Data Vital Signs (Past 12 Hours) Vital Signs Temp Pulse Pulse Resp BP Pulse Ox O2 Del Method 07/08/22 07:39 96 H 07/08/22 07:09 36.4 C L 95 H 19 158/98 H 92 Room Air 07/08/22 06:20 93 H 18 94 Room Air 07/08/22 03:06 36.6 C 91 H 18 134/89 93 Room Air 07/07/22 22:58 94 H 07/07/22 22:44 36.5 C 91 H 18 128/86 94 Room Air PG Care Time/CCT Total # of Minutes Spent Total Time Spent with Patient: Total time spent is greater than 50% in coordination of care (as documented) at patient's floor/unit and/or counseling patient: Coding Level of Care Code 62583 SUB INP/OBS CARE 2/35MIN Medical Decision Making Moderate Complexity Diagnoses Bilateral pulmonary embolism I26.99 Thrombocytopenia D69.6 Heme positive stool R19.5 Hiatal hernia K44.9 Type 2 diabetes mellitus E11.9 Obesity (BMI 30.0-34.9) E66.9 Mild reactive airways disease J45.909 Stage 3a chronic kidney disease (CKD) N18.31 Hypothyroidism E03.9 Hypertension I10 Scalp contusion S00.03XA
--- NOTE | 2022-07-08 11:09 | Pharmacy Report ---
Pharmacy Glycemic Short Note 2 - Date of Service July 08, 2022 - Glycemic Short BSG Results (Last 24 hours): 07/07/22 07/07/22 07/07/22 11:00 16:12 20:16 Glucose POC Glucose 119 H 181 H 246 H 07/08/22 07/08/22 07/08/22 00:13 04:18 06:56 Glucose 164 H POC Glucose 186 H 160 H 07/08/22 07:09 Glucose POC Glucose 174 H OUTPATIENT ANTIDIABETIC REGIMEN: * Glipizide + metformin * A1c = 6.6% (07/07/22) ASSESSMENT: * Kayla is a 77 yo T2DM admitted with bilateral pulmonary embolism and thrombocytopenia. * She was started on dexamethasone 40 mg PO daily on 07/07 for treatment of ITP. * BSGs were reasonably controlled yesterday with the exception of HS: 126, 119, 181, 246, 186 mg/dL. * Will tighten Novolog CF and CR. Continue Lantus dosed per BSG scale. PLAN FOR INPATIENT GLYCEMIC CONTROL: * Hold outpatient oral diabetes medications * Basal insulin * Lantus SQ BID per BSG scale * 0 units for BSG < 140 * 7 units for BSG 140-180 * 13 units for BSG > 180 * Bolus insulin * NovoLog per scale ACHS or Q6hrs while NPO * Goal Range: Low 110 mg/dL - High 140 mg/dL * Correction Factor: 30 mg/dL/unit * Nutritional / Prandial insulin per carb ratio of 1 unit per 10 grams CHO consumed
[2022-07-09] MEDS: LEVOTHYROXINE SODIUM 100 MCG TABLET PO SCH (06:19)
--- NOTE | 2022-07-09 06:28 | Electrocardiogram Report ---
Test Reason : Blood Pressure : / mmHG Vent. Rate : 096 BPM Atrial Rate : 096 BPM P-R Int : 184 ms QRS Dur : 124 ms QT Int : 410 ms P-R-T Axes : 000 -19 -28 degrees QTc Int : 517 ms Normal sinus rhythm Right bundle branch block Abnormal ECG When compared with ECG of 06-JUL-2022 08:36, Premature ventricular complexes are no longer Present Confirmed by Margarito Zarco ([id number]) on 07/09/2022 6:28:21 AM Referred By: REFERRED SELF Confirmed By:Margarito Zarco
--- NOTE | 2022-07-09 07:26 | Hospitalist Progress Note ---
Date of Service July 09, 2022 Assessment & Plan (1) Bilateral pulmonary embolism: Plan: Extensive bilateral PE, intermediate/high risk, acute, unstable. - With CT evidence of right heart strain and elevated cardiac biomarkers, but no hypotension. No ventricular tachyarrhythmia. No acute respiratory failure, paradoxic bradycardia, vasopressor requirement, or shock. - Case was reviewed by [facility]/ICU. As patient is not hypotensive does not currently meet criteria for thrombectomy. tPA/TNKase not recommended as she is not hemodynamically unstable. - Doppler 07/06 with stranding within the common femoral and greater saphenous junction suggestive of chronic nonocclusive thrombus. - Remains on Heparin drip, with concern for low platelet count, due to difficulty getting INRs with patient traveling will convert to DOAC therapy in the evening of 07/09/2022 . - Denies h/o VTE or family history of VTE. Patient has had 1 miscarriage, no personal history of recurrent miscarriages. - Highly recommend obtaining screening colonoscopy following stabilization for heme positive stool. - She will benefit from outpatient hematology follow up, due to thrombocytopenia and to discuss hypercoagulable factors. - (2) Thrombocytopenia: Plan: - Plt count decreased to 41K on 07/06, prior to starting Heparin drip. Therefore this is not related to HIT. - Does not have history of thrombocytopenia in the past, denies recent heparin use prior to this admission. - Peripheral smear pending; Ferritin 32, Iron 44, B12 347, Folate 15.6. INR was mildly prolonged, Fibrinogen level 301. 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 Platelet count continues to improve - (3) Heme positive stool: Plan: Occult positive stool - Patient with no history of GERD or epigastric pain, does use naproxen or ibuprofen about twice a week; hx of hiatal hernia -Transition PPI to p.o. - Most recent colonoscopy >5 years ago per patient, highly recommend updating once she is stabilized. (4) Hiatal hernia: Plan: With increased risk of bleeding due to intermittent NSAID use Transition PPI to p.o. (5) Type 2 diabetes mellitus: Plan: - Last HgbA1c was 6.6% on 07/07/22. BSG of 164 this AM. - DM2 diet ordered Basal bolus weight-based ordered Pharmacy glycemic consult ordered in setting of high dose steroids. (6) Stage 3a chronic kidney disease (CKD): Plan: - Stable; Cr 0.96 this AM. - Monitor (7) Hypertension: Plan: Holding losartanhydrochlorothiazide. Continue Amlodipine - BP stable (8) Scalp contusion: Plan: Scalp contusion from fall prior to admission. - left frontal scalp contusion noted on CT from 07/06/22. No acute intracranial findings. - persists and is tender for patient since starting heparin. - patient is mentating without issue - Continue to monitor, continue conservative management - will likely take some time to resolve Plan CODE STATUS: Full code Admission and Anticipated Discharge Date Admission Date: July 06, 2022 Subjective Patient continues to feel well receding bruising about her eyes has some ear discomfort but this likely may be from perioral bruising also. We discussed possibility of needing warfarin therapy however she says she lives remotely and getting to have blood work will be a challenge for her. To this and we will use a DOAC of Eliquis 10 twice daily starting this evening. She will complete 4 days of dexamethasone 40 for thrombocytopenia Otherwise she is stable with still mild dyspnea when she walks about Physical Exam Physical Exam: Patient is awake alert appropriate she has facial bruising which is receding Cardiac exam is regular there are no heaves there are no rubs Lungs are clear Extremities are without edema Results & Data Results & Data Vital Signs (Past 12 Hours) Vital Signs Temp Pulse Pulse Resp BP Pulse Ox O2 Del Method 07/09/22 03:17 98.1 F 78 18 153/78 H 95 Room Air 07/09/22 01:09 84 07/08/22 23:15 97.9 F 86 18 155/89 H 95 Room Air 07/08/22 20:02 Room Air 07/08/22 19:36 98.1 F 99 H 18 152/92 H 95 Room Air Laboratory Results Reviewed CBC Reviewed [id number] glucose PG Care Time/CCT Total # of Minutes Spent Total Time Spent with Patient: Total time spent is greater than 50% in coordination of care (as documented) at patient's floor/unit and/or counseling patient: Coding Level of Care Code 88516 SUB INP/OBS CARE 2/35MIN Diagnoses Bilateral pulmonary embolism I26.99 Thrombocytopenia D69.6 Heme positive stool R19.5 Hiatal hernia K44.9 Type 2 diabetes mellitus E11.9 Stage 3a chronic kidney disease (CKD) N18.31 Hypertension I10 Scalp contusion S00.03XA
[2022-07-09] MEDS: PLASMA-LYTE A 1,000 ML IV SCH ×2 (07:45→07:46)
[2022-07-09 08:35] LABS: Basophils # (auto) 0.01 K/uL (0-0.2); Basophils % (auto) 0.1 %; Hematocrit (blood only) 42.4 % (37.0-47.0); Hemoglobin 14.7 g/dl (12.0-16.0); Immature Granulocytes # (auto) 0.14 K/uL (0.01-0.20); Immature Granulocytes % (auto) 0.9 %; Lymphocytes # (auto) 1.38 K/uL (1.2-3.4); Lymphocytes % (auto) 9.3 %; Mean Corpuscular Hemoglobin 32.3 pg (25.0-34.0); Mean Corpuscular Hgb Conc 34.7 g/dL (32.0-36.0); Mean Corpuscular Volume 93.2 fL (80.0-100.0); Monocytes # (auto) 0.68 K/uL (0.11-0.59); Monocytes % (auto) 4.6 %; Neutrophils # (auto) 12.63 K/uL (1.40-6.50); Neutrophils % (auto) 85.1 %; Platelet Count 122 K/uL (130-400); RDW Coefficient of Variation 13.7 % (11.5-14.5); RDW Standard Deviation 46.4 fL (36.4-46.3); Red Blood Count 4.55 M/uL (4.20-5.40); White Blood Count 14.84 K/ul (4.8-10.8)
[2022-07-09] MEDS: INSULIN ASPART PER UNIT CHARGE SC SCH ×4 (08:54→20:34)
[2022-07-09] MEDS: PANTOprazole 40 MG in SYRINGE 0 ML IV SCH (08:56)
[2022-07-09] MEDS: dexAMETHasone 4 MG TAB PO SCH (08:56)
[2022-07-09] MEDS: valACYclovir HCL 500 MG TABLET PO SCH (08:56)
[2022-07-09] MEDS: LANTUS PER UNIT CHARGE SQ SCH ×2 (08:57→20:34)
[2022-07-09] MEDS: amLODIPine BESYLATE 5 MG TAB PO SCH (08:57)
[2022-07-09] MEDS: HEPARIN SODIUM/DEXTROSE 25,000 UNITS/500 ML BAG IV SCH (09:05)
[2022-07-09 09:07] LABS: Partial Thromboplastin Ratio 2.2
[2022-07-09 09:28] LABS: Partial Thromboplastin Time 61.8 Seconds (21.0-31.0)
--- NOTE | 2022-07-09 11:04 | Pharmacy Report ---
Pharmacy Glycemic Short Note 2 - Date of Service July 09, 2022 - Glycemic Short BSG Results (Last 24 hours): 07/08/22 07/08/22 07/08/22 11:08 16:13 20:07 POC Glucose 126 H 187 H 150 H 07/09/22 07:26 POC Glucose 138 H OUTPATIENT ANTIDIABETIC REGIMEN: * Glipizide ER 2.5 mg PO daily * Metformin ER 1000 mg PO BIDM * HbA1c: 6.6% (07/07/22) ASSESSMENT: 07/09: * Kayla received 31 units of insulin yesterday, 14 units basal + 17 units bolus. BSGs were: [phone] mg/dL. * Fasting BSG was 138 mg/dL this AM, at goal. Will continue with current insulin regimen and make no changes for now. * Tolerating a T2DM diet. Remains on heparin drip. Day #3/4 of 40 mg PO Dexamethasone. 07/08: * Kayla is a 77 yo T2DM admitted with bilateral pulmonary embolism and thrombocytopenia. * She was started on dexamethasone 40 mg PO daily on 07/07 for treatment of ITP. * BSGs were reasonably controlled yesterday with the exception of HS: 126, 119, 181, 246, 186 mg/dL. * Will tighten Novolog CF and CR. Continue Lantus dosed per BSG scale. PLAN FOR INPATIENT GLYCEMIC CONTROL: * Hold outpatient oral diabetes medications * Basal insulin * Lantus 7 units SC BID * Bolus insulin * NovoLog per scale ACHS or Q6hrs while NPO * Goal Range: Low 110 mg/dL - High 140 mg/dL * Correction Factor: 30 mg/dL/unit * Nutritional / Prandial insulin per carb ratio of 1 unit per 10 grams CHO consumed
[2022-07-09] MEDS: PANTOprazole 40 MG TAB PO SCH (20:32)
[2022-07-09] MEDS: APIXABAN 5 MG TABLET PO SCH (20:32)
[2022-07-09] MEDS ORDERED: bisacodyL 10 MG SUPP PR PRN (20:49)
[2022-07-09] MEDS ORDERED: POLYETHYLENE (MIRALAX) 17 GM PACK PO PRN (20:50)
[2022-07-10] MEDS: LEVOTHYROXINE SODIUM 100 MCG TABLET PO SCH (05:53)
[2022-07-10] MEDS: INSULIN ASPART PER UNIT CHARGE SC SCH ×2 (08:09→12:17)
[2022-07-10] MEDS: PANTOprazole 40 MG TAB PO SCH (08:11)
[2022-07-10] MEDS: APIXABAN 5 MG TABLET PO SCH (08:11)
[2022-07-10] MEDS: LANTUS PER UNIT CHARGE SQ SCH (08:12)
[2022-07-10] MEDS: amLODIPine BESYLATE 5 MG TAB PO SCH (08:12)
[2022-07-10] MEDS: dexAMETHasone 4 MG TAB PO SCH (08:12)
[2022-07-10] MEDS: valACYclovir HCL 500 MG TABLET PO SCH (08:12)
[2022-07-10 08:39] LABS: Hemoglobin 13.3 g/dl (12.0-16.0); Mean Corpuscular Hemoglobin 31.9 pg (25.0-34.0); Mean Corpuscular Hgb Conc 34.1 g/dL (32.0-36.0); Mean Corpuscular Volume 93.5 fL (80.0-100.0); Mean Platelet Volume 12.2 fL (9.4-12.4); Platelet Count 124 K/uL (130-400); RDW Coefficient of Variation 13.8 % (11.5-14.5); RDW Standard Deviation 46.7 fL (36.4-46.3); Red Blood Count 4.17 M/uL (4.20-5.40); White Blood Count 13.25 K/ul (4.8-10.8)
[2022-07-10 09:00] LABS: Partial Thromboplastin Ratio 0.9; Partial Thromboplastin Time 25.1 Seconds (21.0-31.0)
[2022-07-10] MEDS ORDERED: POLYETHYLENE (MIRALAX) 17 GM PACK PO SCH (09:00)
[2022-07-10] MEDS ORDERED: DOCUSATE SODIUM/SENNA 50/8.6MG TAB PO SCH ×2 (09:00)
[2022-07-10] MEDS ORDERED: SOD PHOSPHATE/SOD BIPHOSPHATE ENEMA 132 ML BTL PR ONE (12:20)
[2022-07-10] MEDS ORDERED: SOD PHOSPHATE/SOD BIPHOSPHATE ENEMA 132 ML BTL PR STA (12:33)
--- NOTE | 2022-07-10 13:01 | Discharge Summary ---
Date of Service July 10, 2022 Admission HPI Per Admitting Provider Kayla is a 77-year-old female with a past medical history of type II DM, hypertension, hypothyroidism, obesity, CKD 3, peripheral vascular disease, and reactive airway disease on aspirin 81 mg daily and no anticoagulants who presented after syncopal episode 1 week ago with recurrent dizziness. On CTA in ER she has extensive bilateral pulmonary emboli, with nearly occlusive right pulmonary artery emboli and mild dilation of the right heart chambers suspicious for right heart strain although no hypotension. No pulmonary infarct is noted. CT of the head and CXR of the chest were normal. Presents with SoB worsening in last week with 1 episode of syncope walkin gback from the bathroom. PEs on T. Pt denies recent travel. Hit R leg on something and swelled up a little bit, swelling improved but was present around her calf and tibia for few days an improved after 1-2 days with ice. No shortness of breath or syncope at that time. Symptoms started past Saturday and had 1x episode of syncope while she was brushing her teeth getting ready for work in the bathroom. Had some dizziness prior, was walking to bed and lost conciousness. heard a thud and found her laying on the floor. R eye black and blue from glasses. Second episode of dizziness which is not present at rest or standing, but when she is walking gets a little dizzy and very short of breath. No chest pain at any point. Denies any point other than under her eye, No belly pain. Denies bleeding. No bloody or black bowel movements. Had 1x episode of diarrhea today which was very loose and slightly darker than normal. No abdominal tenderness. Uses NSAIDs. Uses alieve and ibuprofen intermittently for headache in the past, uses ~2 doses of one or the other weekly. Hx of hiatal hernia for which she takes omeprazole daily No alcohol no tobacco use Takes aspirin 81mg daily since age 48, no hx CT or CVA. Took Medicines Albuterol PRN, has not used recently Hx of 1x miscarriage, hx of DNC due to an episode of bleeding. Left shoulder replacement Mar [address] Linder, right shoulder 2 years prior to that Hx R 2nd toe resectiona after corn resection did not heal, ~5 years ago with no complications. Has been dieting in elast year due to diabetes, some weight loss to lower A1C from 10.5 and has worked to get it down under 7.5%. 30lb weight loss in the last year. Some night sweats rarely, none consistently. Menopausal. Colonoscopies regularly, last was <10 years recommended for 10 year followup. No colorectal cancer. Sister had hx of leukemia, MGM had 'some inward cancer not sure what time.' Neice breast cancer. Pt has had annual mammograms which have been normal. Denies fhx of blood clots, CT, and CVA. Medical History: Reviewed Medications: Reviewed. Took meds this morning. Surgical History: Reviewed. Had knee and both shoulder replaced, no hx of blood clots. Was just on aspirin daily postop. Family history: Reviewed Allergies: Reviewed Social History: No tobacco/etoh Code Status: Full Principal Diagnosis Extensive bilateral PE's with acute cor pulmonale Demand ischemia Discharge Exam Patient seen and examined in the morning she is slightly constipated and wishes for a enema prior to going home otherwise she has no complaints or problems her bruising is improving Discharge Data Allergies Allergy/AdvReac Type Severity Reaction Status Date / Time oxycodone [From OxyContin] Allergy Intermediate Hallucinati Verified 03/16/22 07:17 ons adhesive tape AdvReac Mild Skin Verified 03/16/22 07:17 reaction Consultations 07/06/22 12:18 ED Decision to Admit Stat Ordered Studies Chest X-Ray 07/06/22 09:01 XR chest 1V portable CLINICAL HISTORY: syncope [facility] COMPARISON STUDY: Chest radiograph February 14, 2022. FINDINGS: Bilateral shoulder arthroplasties are present. Lung volumes are normal. Lungs are clear. There is no pneumothorax or pleural effusion. Cardiac size is normal. Mediastinal contours are normal. There is no evidence for pulmonary edema. IMPRESSION: No acute cardiopulmonary findings. No change in appearance of the chest. ACT 112: Negative or not required by law. Electronically signed by: Tree Soto M.D. 07/06/2022 9:[address] 07/06/22 09:01 CT OF THE HEAD WITHOUT CONTRAST CLINICAL HISTORY: Syncope with head injury. COMPARISON STUDY: No previous studies for comparison. CT DOSE: 625.80 mGy.cm TECHNIQUE: Helical axial images of the head were obtained without IV contrast. Automated exposure control was utilized for the study. A dose lowering technique was utilized adhering to the principles of ALARA. FINDINGS: No acute intracranial hemorrhage, midline shift or mass effect is present. White matter hypodensities are suggestive of small vessel disease. The ventricular system is unremarkable. The basal cisterns are patent. No extra- axial collections are present. There are no findings to suggest acute dural sinus thrombosis or acute territorial infarct. A left frontal scalp contusion is present. There is no acute calvarial fracture. IMPRESSION: 1. No acute intracranial findings. 2. Left frontal scalp contusion. No calvarial fracture. Electronically signed by: Tree Soto M.D. 07/06/2022 9:27 AM Chest CTA 07/06/22 10:28 CT ANGIOGRAPHY OF THE CHEST, PULMONARY EMBOLUS PROTOCOL CLINICAL HISTORY: PE COMPARISON STUDY: Chest radiograph performed earlier today. TECHNIQUE: Following IV administration of 109 mL of Optiray, helical axial images of the chest were obtained utilizing the pulmonary embolus protocol. Maximal intensity projections and sagittal and coronal reformats were viewed on an independent 3D workstation. IV contrast was administered without complication. Automated exposure control was utilized for the study. A dose lowering technique was utilized adhering to the principles of ALARA. CT DOSE: 564.08 mGy.cm FINDINGS: There are extensive bilateral pulmonary emboli. This includes extensive emboli within the right pulmonary artery which are nearly occlusive. There is minimal opacification of the right-sided pulmonary arteries. There are emboli within the distal left pulmonary artery extending into the lobar and segmental branches of the left lung. No pulmonary infarct is noted. There is mild dilatation of the right heart chambers. Mild cardiomegaly is present. There is no pericardial effusion. No thoracic aortic dissection. No thoracic lymphadenopathy. Ground glass and linear opacities favor atelectasis. There is no pneumothorax or pleural effusion. No acute fractures within the bony structures are noted. A 2.2 cm water attenuation right renal lesion favors a cyst. Calcification granulomas within the spleen are present. Bilateral shoulder arthroplasties are incidentally noted. IMPRESSION: 1. Extensive bilateral pulmonary emboli, including nearly occlusive emboli within the right pulmonary artery. Mild dilatation of the right heart chambers may reflect right heart strain. 2. No pulmonary infarct. Electronically signed by: Tree Soto M.D. 07/06/2022 11:11 AM Venous Doppler Study 07/06/22 11:57 BILATERAL LOWER EXTREMITY VENOUS DOPPLER HISTORY: Screening for DVT in a patient with pulmonary emboli DVT, large PE on CT COMPARISON STUDY: None. FINDINGS: There is normal compressibility, flow, and augmentation within the bilateral lower extremity deep venous systems. Mild linear stranding noted w ithin the common femoral/greater saphenous junction. 4.3 cm Mojica's cyst. IMPRESSION: 1. No acute DVT. 2. Mild linear stranding within the common femoral and greater saphenous junction suggestive of a chronic nonocclusive thrombus. Electronically signed by: Julio César Emery M.D. 07/06/2022 1:53 PM Hospital Course (1) Bilateral pulmonary embolism: Extensive bilateral PE's with acute cor pulmonale intermediate/high risk, acute, unstable. - With CT evidence of right heart strain and elevated cardiac biomarkers, but no hypotension. No ventricular tachyarrhythmia. No acute respiratory failure, paradoxic bradycardia, vasopressor requirement, or shock. - Case was reviewed by [facility]/ICU. As patient is not hypotensive does not currently meet criteria for thrombectomy. tPA/TNKase not recommended as she is not hemodynamically unstable. - Doppler 07/06 with stranding within the common femoral and greater saphenous junction suggestive of chronic nonocclusive thrombus. - convert toEliquis therapy in the evening of 07/09/2022 . - Denies h/o VTE or family history of VTE. Patient has had 1 miscarriage, no p ersonal history of recurrent miscarriages. - Highly recommend obtaining screening colonoscopy following stabilization for heme positive stool. - She will benefit from outpatient hematology follow up, due to thrombocytopenia and to discuss hypercoagulable factors. Due to right heart strain patient suffered from demand ischemia with elevation of troponin during hospital stay not felt to be acute coronary injury - (2) Thrombocytopenia: - Plt count decreased to 41K on 07/06, prior to starting Heparin drip. Therefore this is not related to HIT. - Does not have history of thrombocytopenia in the past, denies recent heparin use prior to this admission. - Peripheral smear pending; Ferritin 32, Iron 44, B12 347, Folate 15.6. INR was mildly prolonged, Fibrinogen level 301. 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 Platelet count continues to improve - (3) Heme positive stool: Occult positive stool - Patient with no history of GERD or epigastric pain, does use naproxen or ibuprofen about twice a week; hx of hiatal hernia -Transition PPI to p.o. - Most recent colonoscopy >5 years ago per patient, highly recommend updating once she is stabilized. (4) Hiatal hernia: With increased risk of bleeding due to intermittent NSAID use Transition PPI to p.o. (5) Type 2 diabetes mellitus: - Last HgbA1c was 6.6% on 07/07/22. BSG of 164 this AM. -Continue home regimen of diet controlled, glipizide, metformin (6) Stage 3a chronic kidney disease (CKD): - Stable; Cr 0.96 this AM. (7) Hypertension: Resume losartanhydrochlorothiazide. Continue Amlodipine (8) Scalp contusion: Scalp contusion from fall prior to admission. - left frontal scalp contusion noted on CT from 07/06/22. No acute intracranial findings. - Plan CODE STATUS: Full code Total Time Total Time Spent Total Time Spent (In Minutes): It required greater than 30 minutes to prepare this patient for discharge Discharge Plan Discharge Items Patient Disposition: Home - Self-Care Reason For Visit: BILATERAL PE Discharge Diagnosis: pulmonary embolism low platelet counts Activity: Resume your previous activity Non-emergency contact: Primary Care Provider Call non-emergency contact if: your symptoms worsen Follow-up/Referrals: Grant Sena MD [Primary Care Provider] - 07/16/22 8:30 am Delores Cortez MD [Physician] - Diet: Regular Addtl Attending Provider Instructions: Medication Instructions: Your condition is typically treated with an anticoagulant. Anticoagulants will thin your blood to help prevent new clots. * You should take her medication exactly as directed. * Never skip a dose. * Never take a double dose. If you miss a dose, take it as soon as you remember. Call your Primary Care doctor if you experience any of the following: * Swelling or Pain in your leg * Sudden, continuous pain deep in a muscle * Pain that worsens when you are active or when you stand still for a long time * Chest Pain * Sudden Shortness of Breath * Rapid or pounding heart beat * Fainting * Dizziness * Cough with blood or bloody sputum * Sweating more than normal * Bruises * Heavy or uncontrolled bleeding * Blood in your urine, stool or vomit * Black or tarry stools Caring for Your Self at Home: * Avoid sitting, standing or lying down for long periods without moving your legs and feet * When traveling by car, stop to get out and move around at least once every 3 hours * On long airplane, train or bus rides, get up and move around when possible * If you can't get up, wiggle your toes and tighten your calves to keep your blood moving Follow Up: It is important for you to keep your follow up appointments with your medical provider. Pending Studies at Discharge: No Stand-Alone Forms: [facility], Smoking Cessation Medications and DC Order Prescriptions: New Eliquis 5 mg Tablet 10 mg PO BID Qty: 60 5RF Rx Instructions: for first rx, 2 tabs bid for one week then one tab bid there after Continued albuterol sulfate [Proventil HFA] 90 mcg/actuation HFA aerosol inhaler 2 puff inhalation Q6H PRN (Reason: shortness of breath or wheezing) Qty: 8.5 3RF Rx Instructions: Please dispense a generic. metformin 500 mg tablet extended release 24 hr 1,000 mg PO BID Qty: 360 3RF nystatin 100,000 unit/gram powder 1 applic topical BID Qty: 60 5RF aspirin 81 mg tablet 81 mg PO QAM potassium gluconate 595 mg (99 mg) Tablet 595 mg PO QAM Probiotic 3 billion cell Capsule 3,000 mmu cells PO QAM magnesium 500 mg tablet 250 mg PO QAM amlodipine 5 mg tablet 5 mg PO DAILY Rx Instructions: Take 1 tablet by mouth once daily omeprazole 40 mg capsule,delayed release(DR/EC) 40 mg PO DAILY Rx Instructions: Take 1 capsule by mouth once daily levothyroxine 100 mcg tablet 100 mcg PO DAILY Rx Instructions: Take 1 tablet by mouth once daily losartan-hydrochlorothiazide 100-25 mg tablet 1 tab PO DAILY Rx Instructions: Take 1 tablet by mouth once daily glipizide 2.5 mg tablet extended release 24hr 2.5 mg PO DAILY Rx Instructions: Take 1 tablet by mouth once daily naproxen sodium [Aleve] 220 mg Capsule 220 mg PO Q8H PRN (Reason: Pain) Hair, Skin and Nails (biotin) 10,000 mcg Tablet,Chewable 10,000 mcg PO QAM Beet Root 1 tab PO QAM valacyclovir 1 gram Tablet 1,000 mg PO QAM prednisolone acetate 1 % Drops,Suspension 1 drp OPR QAM Rx Instructions: RIGHT EYE while awake Discharge Orders: Discharge Order (Routine); Ordered 07/10/22 Ordered By: Kale Christopher/Other Patient Handouts: Pulmonary Embolism, Anticoagulants, Managing Type 2 Diabetes Admission Data Admit Date/Time: 07/06/22 13:07 Attending Provider: Kale Calhoun Admit Provider: Julio Cesar Campbell Primary Care Provider: Grant Sena Other Providers: Julio Cesar Campbell Other Interventions: Discharge Summary Assessment (RN) Last Done: 07/10/22 10:15 Coding Level of Care Code 58972 INP/OBS DISCH >30 MIN Diagnoses Bilateral pulmonary embolism I26.99 Thrombocytopenia D69.6 Heme positive stool R19.5 Hiatal hernia K44.9 Type 2 diabetes mellitus E11.9 Stage 3a chronic kidney disease (CKD) N18.31 Hypertension I10 Scalp contusion S00.03XA
--- NOTE | 2022-07-10 15:48 | Discharge Summary ---
Date of Service July 10, 2022 Admission HPI Per Admitting Provider Kayla is a 77-year-old female with a past medical history of type II DM, hypertension, hypothyroidism, obesity, CKD 3, peripheral vascular disease, and reactive airway disease on aspirin 81 mg daily and no anticoagulants who presented after syncopal episode 1 week ago with recurrent dizziness. On CTA in ER she has extensive bilateral pulmonary emboli, with nearly occlusive right pulmonary artery emboli and mild dilation of the right heart chambers suspicious for right heart strain although no hypotension. No pulmonary infarct is noted. CT of the head and CXR of the chest were normal. Presents with SoB worsening in last week with 1 episode of syncope walkin gback from the bathroom. PEs on T. Pt denies recent travel. Hit R leg on something and swelled up a little bit, swelling improved but was present around her calf and tibia for few days an improved after 1-2 days with ice. No shortness of breath or syncope at that time. Symptoms started past Saturday and had 1x episode of syncope while she was brushing her teeth getting ready for work in the bathroom. Had some dizziness prior, was walking to bed and lost conciousness. heard a thud and found her laying on the floor. R eye black and blue from glasses. Second episode of dizziness which is not present at rest or standing, but when she is walking gets a little dizzy and very short of breath. No chest pain at any point. Denies any point other than under her eye, No belly pain. Denies bleeding. No bloody or black bowel movements. Had 1x episode of diarrhea today which was very loose and slightly darker than normal. No abdominal tenderness. Uses NSAIDs. Uses alieve and ibuprofen intermittently for headache in the past, uses ~2 doses of one or the other weekly. Hx of hiatal hernia for which she takes omeprazole daily No alcohol no tobacco use Takes aspirin 81mg daily since age 48, no hx SD or CVA. Took Medicines Albuterol PRN, has not used recently Hx of 1x miscarriage, hx of DNC due to an episode of bleeding. Left shoulder replacement Mar [address] Linder, right shoulder 2 years prior to that Hx R 2nd toe resectiona after corn resection did not heal, ~5 years ago with no complications. Has been dieting in elast year due to diabetes, some weight loss to lower A1C from 10.5 and has worked to get it down under 7.5%. 30lb weight loss in the last year. Some night sweats rarely, none consistently. Menopausal. Colonoscopies regularly, last was <10 years recommended for 10 year followup. No colorectal cancer. Sister had hx of leukemia, MGM had 'some inward cancer not sure what time.' Neice breast cancer. Pt has had annual mammograms which have been normal. Denies fhx of blood clots, SD, and CVA. Medical History: Reviewed Medications: Reviewed. Took meds this morning. Surgical History: Reviewed. Had knee and both shoulder replaced, no hx of blood clots. Was just on aspirin daily postop. Family history: Reviewed Allergies: Reviewed Social History: No tobacco/etoh Code Status: Full Principal Diagnosis Massive bilateral pulmonary embolisms with cor pulmonale Thrombocytopenia of undetermined etiology Facial contusions from falling Discharge Exam Improved contusions and platelet counts Dyspnea on exertion persist but lungs are clear No cardiac murmurs heaves or rubs Discharge Data Allergies Allergy/AdvReac Type Severity Reaction Status Date / Time oxycodone [From OxyContin] Allergy Intermediate Hallucinati Verified 03/16/22 07:17 ons adhesive tape AdvReac Mild Skin Verified 03/16/22 07:17 reaction Consultations 07/06/22 12:18 ED Decision to Admit Stat Ordered Studies Chest X-Ray 07/06/22 09:01 XR chest 1V portable CLINICAL HISTORY: syncope [facility] COMPARISON STUDY: Chest radiograph February 14, 2022. FINDINGS: Bilateral shoulder arthroplasties are present. Lung volumes are normal. Lungs are clear. There is no pneumothorax or pleural effusion. Cardiac size is normal. Mediastinal contours are normal. There is no evidence for pulmonary edema. IMPRESSION: No acute cardiopulmonary findings. No change in appearance of the chest. ACT 112: Negative or not required by law. Electronically signed by: Tree Soto M.D. 07/06/2022 9:[address] 07/06/22 09:01 CT OF THE HEAD WITHOUT CONTRAST CLINICAL HISTORY: Syncope with head injury. COMPARISON STUDY: No previous studies for comparison. CT DOSE: 625.80 mGy.cm TECHNIQUE: Helical axial images of the head were obtained without IV contrast. Automated exposure control was utilized for the study. A dose lowering technique was utilized adhering to the principles of ALARA. FINDINGS: No acute intracranial hemorrhage, midline shift or mass effect is present. White matter hypodensities are suggestive of small vessel disease. The ventricular system is unremarkable. The basal cisterns are patent. No extra- axial collections are present. There are no findings to suggest acute dural sinus thrombosis or acute territorial infarct. A left frontal scalp contusion is present. There is no acute calvarial fracture. IMPRESSION: 1. No acute intracranial findings. 2. Left frontal scalp contusion. No calvarial fracture. Electronically signed by: Tree Soto M.D. 07/06/2022 9:27 AM Chest CTA 07/06/22 10:28 CT ANGIOGRAPHY OF THE CHEST, PULMONARY EMBOLUS PROTOCOL CLINICAL HISTORY: PE COMPARISON STUDY: Chest radiograph performed earlier today. TECHNIQUE: Following IV administration of 109 mL of Optiray, helical axial images of the chest were obtained utilizing the pulmonary embolus protocol. Maximal intensity projections and sagittal and coronal reformats were viewed on an independent 3D workstation. IV contrast was administered without complication. Automated exposure control was utilized for the study. A dose lowering technique was utilized adhering to the principles of ALARA. CT DOSE: 564.08 mGy.cm FINDINGS: There are extensive bilateral pulmonary emboli. This includes extensive emboli within the right pulmonary artery which are nearly occlusive. There is minimal opacification of the right-sided pulmonary arteries. There are emboli within the distal left pulmonary artery extending into the lobar and segmental branches of the left lung. No pulmonary infarct is noted. There is mild dilatation of the right heart chambers. Mild cardiomegaly is present. There is no pericardial effusion. No thoracic aortic dissection. No thoracic lymphadenopathy. Ground glass and linear opacities favor atelectasis. There is no pneumothorax or pleural effusion. No acute fractures within the bony structures are noted. A 2.2 cm water attenuation right renal lesion favors a cyst. Calcification granulomas within the spleen are present. Bilateral shoulder arthroplasties are incidentally noted. IMPRESSION: 1. Extensive bilateral pulmonary emboli, including nearly occlusive emboli within the right pulmonary artery. Mild dilatation of the right heart chambers may reflect right heart strain. 2. No pulmonary infarct. Electronically signed by: Tree Soto M.D. 07/06/2022 11:11 AM Venous Doppler Study 07/06/22 11:57 BILATERAL LOWER EXTREMITY VENOUS DOPPLER HISTORY: Screening for DVT in a patient with pulmonary emboli DVT, large PE on CT COMPARISON STUDY: None. FINDINGS: There is normal compressibility, flow, and augmentation within the bilateral lower extremity deep venous systems. Mild linear stranding noted within the common femoral/greater saphenous junction. 4.3 cm Mojica's cyst. IMPRESSION: 1. No acute DVT. 2. Mild linear stranding within the common femoral and greater saphenous junction suggestive of a chronic nonocclusive thrombus. Electronically signed by: Julio César Emery M.D. 07/06/2022 1:53 PM Hospital Course (1) Bilateral pulmonary embolism: Extensive bilateral PE's with acute cor pulmonale intermediate/high risk, acute, unstable. - With CT evidence of right heart strain and elevated cardiac biomarkers, but no hypotension. No ventricular tachyarrhythmia. No acute respiratory failure, paradoxic bradycardia, vasopressor requirement, or shock. - Case was reviewed by [facility]/ICU. As patient is not hypotensive does not currently meet criteria for thrombectomy. tPA/TNKase not recommended as she is not hemodynamically unstable. - Doppler 07/06 with stranding within the common femoral and greater saphenous junction suggestive of chronic nonocclusive thrombus. - convert toEliquis therapy in the evening of 07/09/2022 . - Denies h/o VTE or family history of VTE. Patient has had 1 miscarriage, no personal history of recurrent miscarriages. - Highly recommend obtaining screening colonoscopy following stabilization for heme positive stool. - She will benefit from outpatient hematology follow up, due to thrombocytopenia and to discuss hypercoagulable factors. Due to right heart strain patient suffered from demand ischemia with elevation of troponin during hospital stay not felt to be acute coronary injury - (2) Thrombocytopenia: - Plt count decreased to 41K on 07/06, prior to starting Heparin drip. Therefore this is not related to HIT. - Does not have history of thrombocytopenia in the past, denies recent heparin use prior to this admission. - Peripheral smear pending; Ferritin 32, Iron 44, B12 347, Folate 15.6. INR was mildly prolonged, Fibrinogen level 301. 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 Platelet count continues to improve follow-up with Dr. Cortez and [facility] - (3) Heme positive stool: Occult positive stool - Patient with no history of GERD or epigastric pain, does use naproxen or ibuprofen about twice a week; hx of hiatal hernia -Transition PPI to p.o. - Most recent colonoscopy >5 years ago per patient, highly recommend updating once she is stabilized. (4) Hiatal hernia: With increased risk of bleeding due to intermittent NSAID use Transition PPI to p.o. (5) Type 2 diabetes mellitus: - Last HgbA1c was 6.6% on 07/07/22. BSG of 164 this AM. -Continue home regimen of diet controlled, glipizide, metformin (6) Stage 3a chronic kidney disease (CKD): - Stable; Cr 0.96 this AM. (7) Hypertension: Resume losartanhydrochlorothiazide. Continue Amlodipine (8) Scalp contusion: Scalp contusion from fall prior to admission. - left frontal scalp contusion noted on CT from 07/06/22. No acute intracranial findings. - Plan CODE STATUS: Full code Total Time Total Time Spent Total Time Spent (In Minutes): It required greater than 30 minutes to prepare this patient for discharge Discharge Plan Discharge Items Patient Disposition: Home - Self-Care Reason For Visit: BILATERAL PE Discharge Diagnosis: pulmonary embolism low platelet counts Activity: Resume your previous activity Non-emergency contact: Primary Care Provider Call non-emergency contact if: your symptoms worsen Follow-up/Referrals: Grant Sena MD [Primary Care Provider] - 07/16/22 8:30 am Delores Cortez MD [Physician] - Diet: Regular Addtl Attending Provider Instructions: Medication Instructions: Your condition is typically treated with an anticoagulant. Anticoagulants will thin your blood to help prevent new clots. * You should take her medication exactly as directed. * Never skip a dose. * Never take a double dose. If you miss a dose, take it as soon as you remember. Call your Primary Care doctor if you experience any of the following: * Swelling or Pain in your leg * Sudden, continuous pain deep in a muscle * Pain that worsens when you are active or when you stand still for a long time * Chest Pain * Sudden Shortness of Breath * Rapid or pounding heart beat * Fainting * Dizziness * Cough with blood or bloody sputum * Sweating more than normal * Bruises * Heavy or uncontrolled bleeding * Blood in your urine, stool or vomit * Black or tarry stools Caring for Your Self at Home: * Avoid sitting, standing or lying down for long periods without moving your legs and feet * When traveling by car, stop to get out and move around at least once every 3 hours * On long airplane, train or bus rides, get up and move around when possible * If you can't get up, wiggle your toes and tighten your calves to keep your blood moving Follow Up: It is important for you to keep your follow up appointments with your medical provider. Pending Studies at Discharge: No Stand-Alone Forms: My [facility], Smoking Cessation Medications and DC Order Prescriptions: New Eliquis 5 mg Tablet 10 mg PO BID Qty: 60 5RF Rx Instructions: for first rx, 2 tabs bid for one week then one tab bid there after Continued albuterol sulfate [Proventil HFA] 90 mcg/actuation HFA aerosol inhaler 2 puff inhalation Q6H PRN (Reason: shortness of breath or wheezing) Qty: 8.5 3RF Rx Instructions: Please dispense a generic. metformin 500 mg tablet extended release 24 hr 1,000 mg PO BID Qty: 360 3RF nystatin 100,000 unit/gram powder 1 applic topical BID Qty: 60 5RF aspirin 81 mg tablet 81 mg PO QAM potassium gluconate 595 mg (99 mg) Tablet 595 mg PO QAM Probiotic 3 billion cell Capsule 3,000 mmu cells PO QAM magnesium 500 mg tablet 250 mg PO QAM amlodipine 5 mg tablet 5 mg PO DAILY Rx Instructions: Take 1 tablet by mouth once daily omeprazole 40 mg capsule,delayed release(DR/EC) 40 mg PO DAILY Rx Instructions: Take 1 capsule by mouth once daily levothyroxine 100 mcg tablet 100 mcg PO DAILY Rx Instructions: Take 1 tablet by mouth once daily losartan-hydrochlorothiazide 100-25 mg tablet 1 tab PO DAILY Rx Instructions: Take 1 tablet by mouth once daily glipizide 2.5 mg tablet extended release 24hr 2.5 mg PO DAILY Rx Instructions: Take 1 tablet by mouth once daily naproxen sodium [Aleve] 220 mg Capsule 220 mg PO Q8H PRN (Reason: Pain) Hair, Skin and Nails (biotin) 10,000 mcg Tablet,Chewable 10,000 mcg PO QAM Beet Root 1 tab PO QAM valacyclovir 1 gram Tablet 1,000 mg PO QAM prednisolone acetate 1 % Drops,Suspension 1 drp OPR QAM Rx Instructions: RIGHT EYE while awake Discharge Orders: Discharge Order (Routine); Ordered 07/10/22 Ordered By: Kale Christopher/Other Patient Handouts: Pulmonary Embolism, Anticoagulants, Managing Type 2 Diabetes Admission Data Admit Date/Time: 07/06/22 13:07 Attending Provider: Kale Calhoun Admit Provider: Julio Cesar Campbell Primary Care Provider: Grant Sena Other Providers: Julio Cesar Campbell Other Interventions: Discharge Summary Assessment (RN) Last Done: 07/10/22 10:15 Coding Level of Care Code 77848 INP/OBS DISCH >30 MIN Diagnoses Bilateral pulmonary embolism I26.99 Thrombocytopenia D69.6 Heme positive stool R19.5 Hiatal hernia K44.9 Type 2 diabetes mellitus E11.9 Stage 3a chronic kidney disease (CKD) N18.31 Hypertension I10 Scalp contusion S00.03XA
== END 2022-07-10 13:39 | disposition home or self-care (01) | DRG 175 ==
LOC: ED 08:21 → SUATTDRO 13:07 → 2S 13:07 → 2E 07-08 18:18